=== PATIENT | female | born 1945 | race Caucasian/White ===

== ENCOUNTER → 2020-11-06 12:46 | Outpatient (CLI) | payer MEDICARE, SELFPAY ==
[2020-11-06] MEDS: COVID-19 VACC, Ad26(JANSSEN)/PF 0.5 ML IM (13:10)
== END ==
PROVIDERS: Visit Provider Internal Medicine
DX: Z23 Encounter for immunization (principal)
CPT/HCPCS: 0031A; 91303

== ENCOUNTER → 2021-04-14 17:20 | Outpatient (CLI) | payer OTHER, SELFPAY ==
[2021-04-14 18:10] LABS: Add Manual Diff / Slide Review NO; Basophils Absolute Auto 100 /uL (0-100); Basophils Percent Auto 1.9 % (0-2); Eosinophils Absolute Auto 0 /uL (0-450); Lymphocytes Absolute Auto 400 /uL (1100-4500); Lymphocytes Percent Auto 8.2 % (25-40); Mean Corpuscular HGB Conc 26.7 % (30-36); Mean Corpuscular Hemoglobin 14.7 PG (26-34); Mean Corpuscular Volume 54.9 fL (80-100); Monocytes Absolute Auto 400 /uL (0-900); Monocytes Percent Auto 9.3 % (3-14); Neutrophils Absolute Auto 3500 /uL (1500-7000); Neutrophils Percent Auto 79.6 % (50-75); Platelet Count 365 X10^3/uL (150-400); Red Cell Distribution Width 22.5 % (11.6-14.8); White Blood Cell Count 4.4 X10^3/uL (4.5-11.0)
[2021-04-14 18:17] LABS: Alanine Aminotransferase 11 IU/L (<35); Albumin Globulin Ratio 1.2 (1.0-2.8); Alkaline Phosphatase 113 U/L (38-126); Aspartate Aminotransferase 20 IU/L (14-36); BUN Creatinine Ratio 21.6 (6-22); Bilirubin Total 0.9 mg/dL (0.2-1.3); Blood Urea Nitrogen 16 mg/dL (7-17); Calcium 10.3 mg/dL (8.4-10.2); Carbon Dioxide 22 mmol/L (22-32); Chloride 104 mmol/L (98-107); Cholesterol 170 mg/dL (140-199); Estimated Glomerular Filt Rate > 60.0 mL/min (>60); Globulin 3.3 g/dL (1.7-4.1); Glucose 109 mg/dL (80-110); HDL Cholesterol 54 mg/dL (40-60); HEMOLYSIS < 15 (0-50); LDL Cholesterol Calculated 93 mg/dL (<100); Potassium 3.6 mmol/L (3.4-5.1); Sodium 134 mmol/L (137-145); Total Protein 7.3 g/dL (6.3-8.2); Triglycerides 115 mg/dL (35-150)
[2021-04-14 18:47] LABS: Thyroid Stimulating Hormone 2.37 uIU/mL (0.47-4.68)
[2021-04-14 18:54] LABS: Hematocrit 19.2 % (36-46); Hemoglobin 5.1 g/dL (12.0-16.0)
[2021-04-14 21:09] LABS: Anisocytosis 1+; Microcytosis 3+; Target Cells 1+
== END ==
PROVIDERS: PCP Student in an Organized Health Care Education/Training Program; Referring Provider Student in an Organized Health Care Education/Training Program; Visit Provider Student in an Organized Health Care Education/Training Program
DX: I10 Essential (primary) hypertension (principal); E78.5 Hyperlipidemia, unspecified; F03.90 Unspecified dementia, unspecified severity, without behavioral disturbance, psychotic disturbance, mood disturbance, and anxiety
CPT/HCPCS: 36415; 80053; 80061; 84443; 85025

== ENCOUNTER 2021-04-15 11:09 | Observation (INO) | payer OTHER, SELFPAY ==
[2021-04-15] VITALS (11 sets, daily range): BP systolic 152–193; BP diastolic 72–87; PULSE 72–89; RESP 16–30; TEMP 36.4–37.1; O2SAT 96–100; BMI 28.3
[2021-04-15 11:43] LABS: Add Manual Diff / Slide Review NO; Basophils Absolute Auto 100 /uL (0-100); Basophils Percent Auto 1.8 % (0-2); Eosinophils Absolute Auto 0 /uL (0-450); Eosinophils Percent Auto 0.8 % (2-4); Lymphocytes Absolute Auto 400 /uL (1100-4500); Lymphocytes Percent Auto 12.2 % (25-40); Mean Corpuscular HGB Conc 27.2 % (30-36); Mean Corpuscular Hemoglobin 14.8 PG (26-34); Mean Corpuscular Volume 54.5 fL (80-100); Monocytes Absolute Auto 500 /uL (0-900); Monocytes Percent Auto 13.1 % (3-14); Neutrophils Absolute Auto 2600 /uL (1500-7000); Neutrophils Percent Auto 72.1 % (50-75); Platelet Count 294 X10^3/uL (150-400); Red Blood Cell Count 2.95 X10^6/uL (4.0-5.2); Red Cell Distribution Width 22.4 % (11.6-14.8); White Blood Cell Count 3.5 X10^3/uL (4.5-11.0)
[2021-04-15 11:45] LABS: Hemoglobin 4.4 g/dL (12.0-16.0)
[2021-04-15 11:46] LABS: Hematocrit 16.1 % (36-46)
[2021-04-15 11:52] LABS: Blood Urea Nitrogen 19 mg/dL (7-17); Calcium 10.2 mg/dL (8.4-10.2); Carbon Dioxide 20 mmol/L (22-32); Chloride 104 mmol/L (98-107); Estimated Glomerular Filt Rate > 60.0 mL/min (>60); Glucose 119 mg/dL (80-110); HEMOLYSIS < 15 (0-50); Potassium 3.5 mmol/L (3.4-5.1); Sodium 133 mmol/L (137-145)
--- NOTE | 2021-04-15 12:09 | ED_ITS ---
HPI - Recheck/Abnormal Lab/Rx General Chief Complaint: Recheck/Abnormal Lab/Rx Stated Complaint: Sent by MD for Blood Transfusion Time Seen by Provider: 04/15/21 11:11 History of Present Illness HPI narrative: Patient is a 75-year-old female. Saw a primary doctor yesterday for the 1st time after many months/years of not being seen. She does not take any medications. She had blood drawn yesterday. She received a call today from the doctor's office telling her that she needed to come to the emergency department for blood transfusion. Patient states she has relatively no symptoms however her states that over the past month she has had what appears to be shortness of breath particularly with exertion. The patient denies shortness of breath. Denies chest pain. Denies abdominal pain. Denies blood in her stool. Denies blood in her urine. No change of bowel habits. Does not bruise easily. No headaches. Patient denies use of alcohol. Denies use of nonsteroidal anti-inflammatories. No fevers. Review of Systems Constitutional Constitutional: Reports system reviewed and no additional complaints, except as documented Eyes Eyes: Reports system reviewed and no additional complaints, except as documented ENT Ears, Nose, Mouth, and Throat: Reports system reviewed and no additional complaints, except as documented Cardiovascular Cardiovascular: Reports system reviewed and no additional complaints, except as documented Respiratory Respiratory: Reports system reviewed and no additional complaints, except as documented Gastrointestinal Gastrointestinal: Reports system reviewed and no additional complaints, except as documented Genitourinary Genitourinary: Reports system reviewed and no additional complaints, except as documented Musculoskeletal Musculoskeletal: Reports system reviewed and no additional complaints, except as documented Integumentary/Breasts Skin/Breast: Reports system reviewed and no additional complaints, except as documented Neurologic Neurologic: Reports system reviewed and no additional complaints, except as documented Endocrine Endocrine: Reports system reviewed and no additional complaints, except as documented Hematologic/Lymphatic On Anticoagulants: No Allergic/Immunologic Allergic/Immunologic: Reports system reviewed and no additional complaints, except as documented Patient History Medical History Patient denies medical problems Social History marital status: lives independently: Yes Exam Initial Vital Signs Initial Vital Signs: Vital Signs Temperature 98.4 F 04/15/21 11:15 Pulse Rate 74 08/18/21 11:15 Respiratory Rate 30 H 04/15/21 11:15 Blood Pressure 154/72 H 04/15/21 11:15 Pulse Oximetry 99 04/15/21 11:15 Const General: cooperative and comfortable HENMT Head: normal to inspection and normocephalic Eyes Other: Conjunctival pallor Chest Chest: normal inspection of the chest Resp Effort & Inspection: normal respiratory effort Auscultation: clear to auscultation bilaterally Cardio Rate: regular rate Rhythm: regular rhythm GI Inspection: normal to inspection Palpation: soft and No tender Skin Other: Pale skin, no rashes Neuro General: patient alert, patient awake, patient oriented x3 and moves all extremities Speech: speech normal Extrem General: normal to inspection Psych Appearance: grossly normal and well kempt Scores GCS [place] coma scale eye opening: Spontaneous [place] coma scale verbal response: Orientated [place] coma scale motor response: Obey commands [place] coma scale total score: 15 Course Orders Ordered: ED Orders 04/15/21 11:32 Basic Metabolic Panel Stat Complete Blood Count AUTO DIFF Stat Packed Cells Stat Type and Screen Stat 04/15/21 11:49 COVID19 - ADMIT (ANIMAL CHIROPRACTOR swab/PCR) Stat Vital Signs Vital signs: Vital Signs - 8 hr 04/15/21 11:15 04/15/21 12:57 Temperature 98.4 F 98.1 F Pulse Rate 74 84 Respiratory Rate 30 H 16 Blood Pressure 154/72 H 158/72 H Pulse Oximetry 99 MDM - Recheck/Abnormal Lab/Rx Medical Records Attestation: I reviewed the patient's medical records. Lab Data Attestation: I reviewed the patient's lab results. Result diagrams: 04/15/21 11:32 04/15/21 11:32 Labs: Lab Results 04/15/21 04/15/21 04/15/21 Range/Units 11:32 11:32 11:32 WBC 3.5 L (4.5-11.0) X10^3/uL RBC 2.95 L (4.0-5.2) X10^6/uL Hgb 4.4 L* (12.0-16.0) g/dL Hct 16.1 L* (36-46) % MCV 54.5 L (80-100) fL MCH 14.8 L (26-34) PG MCHC 27.2 L (30-36) % RDW 22.4 H (11.6-14.8) % Plt Count 294 (150-400) X10^3/uL Neut % (Auto) 72.1 (50-75) % Lymph % (Auto) 12.2 L (25-40) % [place] % (Auto) 13.1 (3-14) % Eos % (Auto) 0.8 L (2-4) % Baso % (Auto) 1.8 (0-2) % Neut # (Auto) 2600 (8011-8201) /uL Lymph # (Auto) 400 L (2723-1015) /uL [place] # (Auto) 500 (0-900) /uL Eos # (Auto) 0 (0-450) /uL Baso # (Auto) 100 (0-100) /uL RBC Morphology Not Reportable Hypochromasia 2+ H Microcytosis 3+ H Sodium 133 L (137-145) mmol/L Potassium 3.5 (3.4-5.1) mmol/L Chloride 104 (98-107) mmol/L Carbon Dioxide 20 L (22-32) mmol/L BUN 19 H (7-17) mg/dL Creatinine 0.73 (0.52-1.04) mg/dL Estimated GFR > 60.0 (>60) mL/min BUN/Creatinine Ratio 26.0 H (6-22) Glucose 119 H (80-110) mg/dL Calcium 10.2 (8.4-10.2) mg/dL Blood Type O Positive Antibody Screen Negative Crossmatch See Detail MDM Narrative Medical decision making narrative: Patient is not hypotensive. Not tachycardic. Is pale. Is anemic on her labs today. Discussed the risks and benefits of a blood transfusion in after patient expressed understanding we will proceed with transfusing 2 units of packed red blood cells. Uncertain of the exact etiology of her anemia. She does not have any abdominal pain. No blood in her stool. (Hemoccult testing is still pending) she denies any blood in her urine. I did discuss the case with Dr. Cruz who was the patient's primary doctor who will admit for further evaluation and treatment. I did discuss the need for admission with the patient. She expressed understanding and agreement. Critical Care Time Critical Care Time Critical Care Time: Yes Total Critical Care Time: 35 Attestation: The high probability of a clinically significant, sudden or life threatening deterioration of the hematology/cardiovascular system(s) required my full and direct attention, intervention and personal management. The aggregate critical care time was35 minutes. This time is in addition to time spent performing reported procedures but includes the following: [x] Data Review and interpretation [x] Patient assessment and monitoring of vital signs [x] Documentation [x] Medication orders and management Discharge Plan Departure Patient Disposition: Admitted as Observation Clinical Impression: Anemia
[2021-04-15 12:10] LABS: Hypochromasia 2+; Microcytosis 3+
[2021-04-15 14:20] LABS: COVID19 - ADMIT (NP swab/PCR) Negative (Negative)
--- NOTE | 2021-04-15 15:24 | PC.NURSE ---
Rec'd pt to rm 218 from ED via yen[facility] with blood transfusing. Supportive at bedside. Admission assessment completed. states pt is confused and covers well. Oriented pt and to room, routine, use of call light. Instructed pt to wait for assistance before getting OOB. She is agreeable and verbalizes understanding. Bed alarm on. Call light in easy reach.
--- NOTE | 2021-04-15 18:03 | PM.HP.1 ---
History of Present Illness History of Present Illness Date Patient Seen: 04/15/21 Time Patient Seen: 18:04 Chief complaint: Sent by MD for Blood Transfusion Narrative: 75 year old female presented to the clinic yesterday to reestablish care after 5 years. She had no complaints at that visit. UMS dementia screen, 06/27. Vital signs significant for hypotension at 102/60 and tachycardia at 110. Routine labs revealed a hemoglobin/hematocrit of 5.1/19.2 and she was sent to the ED for blood transfusion. H/H in the ED today was 4.4/16.1. Vital signs included a temperature of 98.4?, pulse 74, respirations 30, blood pressure 154/72, O2 saturation 99% on room air. WBC slightly low at 3.5, sodium also low at 133. BUN slightly elevated at 19. Peripheral smear revealed hypochromasia 2+ and a microcytosis at 3+. Fecal occult blood pending. She was transfused 2 units of PRBCs prior to being transferred to the floor. Patient reports that she feels slightly better after the blood but didn't feel poorly prior to that. I have no pain. Patient reports that she has been healthy all of her life and takes no medications. She takes no supplements. She is not on any NSAIDs. No alcohol use. Has a cup of tea approximately 1 per day, not every day. Appetite is poor. Diet consists of carbohydrates, fruits, vegetables and scant protein. is diabetic, so follows a diabetic diet. She has been a little bit fatigued and reports that she gets tired when walking short distances in the house but patient denies that this is true. No melena or hematochezia. No hematuria. Patient reports one lifetime colonoscopy, cannot remember the result. Past Medical History: Hyperlipidemia Osteoarthritis Dementia Obesity with x 3 Past Surgical History: Tonsillectomy, age 1 Dental surgery Family History: Father: Parkinson's Mother: Lung cancer, smoker Sister: healthy Children: healthy Social History: Grew up in family, lived all over. Out of touch with her family as they are drinkers. First at age 42, 2 daughters, 1 son. Second is Chase, over 15 years. 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 No alcohol, tobacco, or drugs. Patient History Medical History Patient denies medical problems Family & Social History Social History: household members spouse lives independently Yes Safety & Behavioral: Feels Safe in Current Yes Environment Been Physically Hurt or No Threatened By a Person Suicidal Ideation Description None Tobacco & Substance use: Smoking Status Never smoker alcohol intake never Substance Use Type does not use Meds Home Medications and Allergies Home Medications Medication Instructions Recorded Confirmed Type No Known Home Medications 04/15/21 04/15/21 History Allergies Allergy/AdvReac Type Severity Reaction Status Date / Time No Known Drug Allergies Allergy Verified 04/15/21 14:55 Review of Systems Review of Systems Narrative: See HPI. Exam Vital Signs (past 8 hours): - 04/15/21 11:15 04/15/21 12:57 04/15/21 13:14 Temperature 98.4 F 98.1 F 97.7 F Pulse Rate 74 84 83 Respiratory Rate 30 H 16 28 H Blood Pressure 154/72 H 158/72 H 173/74 H Pulse Oximetry 99 04/15/21 13:15 04/15/21 14:07 04/15/21 14:37 Temperature 97.7 F 98.7 F 98.8 F Pulse Rate 82 84 82 Respiratory Rate 25 H 16 16 Blood Pressure 173/79 H 153/75 H 158/75 H Pulse Oximetry 99 96 04/15/21 15:10 04/15/21 16:07 04/15/21 16:29 Temperature 97.5 F L 97.5 F L 97.6 F Pulse Rate 80 80 89 Respiratory Rate 18 18 18 Blood Pressure 193/87 H 193/87 H 153/76 H Pulse Oximetry 100 Oxygen Delivery Method Room Air Oxygen Flow Rate 0 Narrative Exam Narrative: GENERAL: Alert and oriented, appearing stated age and in no acute distress. HEENT: Head normocephalic/atraumatic. LUNGS: Clear to ausculation bilaterally, no wheezes, rhonchi or rales. CV: Normal S1 and S2 with regular rate and rhythm, no audible murmurs, rubs or gallops. ABDOMEN: Soft, non-tender, non-distended, no organomegaly. Positive bowel sounds. EXTREMITIES: No clubbing, cyanosis, or edema. NEURO: Cranial nerves II through XII grossly intact, no focal deficits. PSYCH: Alert and oriented x 3. SKIN: Pale, no concerning lesions. Objective Labs Result Diagrams: 04/15/21 11:32 04/15/21 11:32 Labs: Laboratory Results - last 24 hr 04/15/21 04/15/21 04/15/21 11:32 11:32 11:32 WBC 3.5 L RBC 2.95 L Hgb 4.4 L* Hct 16.1 L* MCV 54.5 L MCH 14.8 L MCHC 27.2 L RDW 22.4 H Plt Count 294 Neut % (Auto) 72.1 Lymph % (Auto) 12.2 L [place] % (Auto) 13.1 Eos % (Auto) 0.8 L Baso % (Auto) 1.8 Neut # (Auto) 2600 Lymph # (Auto) 400 L [place] # (Auto) 500 Eos # (Auto) 0 Baso # (Auto) 100 RBC Morphology Not Reportable Hypochromasia 2+ H Microcytosis 3+ H Sodium 133 L Potassium 3.5 Chloride 104 Carbon Dioxide 20 L BUN 19 H Creatinine 0.73 Estimated GFR > 60.0 BUN/Creatinine Ratio 26.0 H Glucose 119 H Calcium 10.2 SARS-CoV-2 (PCR) Blood Type O Positive Antibody Screen Negative Crossmatch See Detail 04/15/21 12:26 WBC RBC Hgb Hct MCV MCH MCHC RDW Plt Count Neut % (Auto) Lymph % (Auto) [place] % (Auto) Eos % (Auto) Baso % (Auto) Neut # (Auto) Lymph # (Auto) [place] # (Auto) Eos # (Auto) Baso # (Auto) RBC Morphology Hypochromasia Microcytosis Sodium Potassium Chloride Carbon Dioxide BUN Creatinine Estimated GFR BUN/Creatinine Ratio Glucose Calcium SARS-CoV-2 (PCR) Negative Blood Type Antibody Screen Crossmatch Assessment & Plan Assessment & Plan narrative: 1. Anemia, normocytic /normochromic, likely iron deficiency, present upon admission Plan: Awaiting post transfusion CBC, anticipate need for additional units. In the meantime, running labs for anemia workup. Patient seems to be tolerating this level of anemia remarkably well, likely chronic and related to iron deficiency. FOB pending. Anticipate starting IV iron in the morning. Outpatient EGD/colonoscopy. 2. Hyperlipidemia, chronic Plan: Will update FLP in the morning. 3. Dementia, chronic Plan: Supportive care. 4. Obesity Plan: Patient does not appear to be malnourished, but may need nutrition consult prior to discharge depending on outcome of iron studies. DVT Prophylaxis: SCDs Code: Full COVID: negative FEN: regular diet, PRBCs as needed Disposition: Anticipate 2 midnights.
[2021-04-15 18:52] LABS: Appearance Urine UA CLOUDY; Bilirubin Urine UA NEGATIVE (NEGATIVE); Color Urine UA YELLOW; Glucose Urine UA NEGATIVE (Negative); Ketones Urine UA NEGATIVE (NEGATIVE); Leukocyte Esterase Urine UA 2+ (NEGATIVE); Nitrite Urine UA NEGATIVE (Negative); Occult Blood Urine UA 1+ (Negative); Protein Urine UA 2+ (Negative); Urobilinogen Urine UA 0.2 E.U./dL (0.2)
[2021-04-15 18:55] LABS: pH Urine UA 5.5 (4.5-8.0)
[2021-04-15 18:58] LABS: RBC Urine 1-5/HPF (0-5/HPF)
[2021-04-15 18:59] LABS: Amorphous Sediment Urine 1+; Bacteria Urine Many (>30); Culture Indicated Urine Specimen Cultured; Mucus Urine 1+ (Negative); Squamous Epithelial Cell Urine 5-10 /HPF (0-5/HPF); WBC Urine 30-100/HPF (0-5/HPF)
[2021-04-15 19:54] LABS: Add Manual Diff / Slide Review NO; Basophils Absolute Auto 100 /uL (0-100); Basophils Percent Auto 1.3 % (0-2); Eosinophils Absolute Auto 100 /uL (0-450); Eosinophils Percent Auto 1.2 % (2-4); Hematocrit 24.2 % (36-46); Hemoglobin 7.4 g/dL (12.0-16.0); Lymphocytes Absolute Auto 700 /uL (1100-4500); Lymphocytes Percent Auto 12.2 % (25-40); Mean Corpuscular Hemoglobin 19.6 PG (26-34); Mean Corpuscular Volume 64.3 fL (80-100); Monocytes Absolute Auto 700 /uL (0-900); Neutrophils Absolute Auto 4100 /uL (1500-7000); Neutrophils Percent Auto 72.3 % (50-75); Platelet Count 220 X10^3/uL (150-400); Red Blood Cell Count 3.77 X10^6/uL (4.0-5.2); Red Cell Distribution Width 32.9 % (11.6-14.8); White Blood Cell Count 5.7 X10^3/uL (4.5-11.0)
[2021-04-15 20:06] LABS: Reticulocyte Count, Percent 1.8 % (1.06-2.63)
[2021-04-15 20:11] LABS: Iron 59 ug/dL (37-170)
[2021-04-15 20:20] LABS: Percent Iron Saturation 14 % (15-50); Total Iron Binding Capacity 429 ug/dL (265-497); Transferrin 338 mg/dL (206-381)
[2021-04-15 20:23] LABS: Mean Corpuscular HGB Conc 30.4 % (30-36)
[2021-04-15 20:24] LABS: Anisocytosis 3+; Dimorphic RBC PRESENT; Microcytosis 2+
[2021-04-15 20:30] LABS: Ferritin 7 ng/mL (11-264)
[2021-04-15 21:01] LABS: Folate 3.1 ng/mL (2.76-20.0); Vitamin B12 545 pg/mL (239-931)
[2021-04-15 23:04] LABS: Appearance Urine UA CLOUDY; Bilirubin Urine UA NEGATIVE (NEGATIVE); Color Urine UA YELLOW; Glucose Urine UA NEGATIVE (Negative); Ketones Urine UA TRACE (NEGATIVE); Leukocyte Esterase Urine UA 3+ (NEGATIVE); Nitrite Urine UA NEGATIVE (Negative); Occult Blood Urine UA 2+ (Negative); Protein Urine UA 2+ (Negative); Urobilinogen Urine UA 0.2 E.U./dL (0.2)
[2021-04-15 23:08] LABS: pH Urine UA 5.5 (4.5-8.0)
[2021-04-15 23:18] LABS: Bacteria Urine Many (>30); RBC Urine 1-5/HPF (0-5/HPF); Squamous Epithelial Cell Urine 1-5 /HPF (0-5/HPF); WBC Urine 30-100/HPF (0-5/HPF)
[2021-04-16] MEDS: NITROFURANTOIN ER 100 MG CAPSULE PO ×2 (00:47→09:04)
[2021-04-16] MEDS: FUROSEMIDE 20 MG/2 ML VIAL IV (00:47)
[2021-04-16 01:44] VITALS: BP 156/83; PULSE 86; RESP 16; TEMP 36.8; O2SAT 100
[2021-04-16 04:25] VITALS: BP 146/76; PULSE 93; RESP 17; TEMP 36.8; O2SAT 99
[2021-04-16] MEDS: ACETAMINOPHEN 325 MG TABLET 650 MG PO (04:36)
[2021-04-16 05:37] LABS: Basophils Absolute Auto 100 /uL (0-100); Basophils Percent Auto 1.9 % (0-2); Eosinophils Absolute Auto 100 /uL (0-450); Eosinophils Percent Auto 2.2 % (2-4); Hematocrit 24.2 % (36-46); Hemoglobin 7.3 g/dL (12.0-16.0); Lymphocytes Absolute Auto 400 /uL (1100-4500); Lymphocytes Percent Auto 10.2 % (25-40); Mean Corpuscular Hemoglobin 19.3 PG (26-34); Mean Corpuscular Volume 64.3 fL (80-100); Monocytes Absolute Auto 600 /uL (0-900); Monocytes Percent Auto 13.5 % (3-14); Neutrophils Absolute Auto 3200 /uL (1500-7000); Neutrophils Percent Auto 72.2 % (50-75); Platelet Count 234 X10^3/uL (150-400); Red Blood Cell Count 3.76 X10^6/uL (4.0-5.2); White Blood Cell Count 4.4 X10^3/uL (4.5-11.0)
[2021-04-16 05:38] LABS: Add Manual Diff / Slide Review SLIDE REVIEW
[2021-04-16 05:48] LABS: Alanine Aminotransferase 12 IU/L (<35); Albumin 3.5 g/dL (3.5-5.0); Albumin Globulin Ratio 1.2 (1.0-2.8); Alkaline Phosphatase 88 U/L (38-126); Aspartate Aminotransferase 21 IU/L (14-36); BUN Creatinine Ratio 22.5 (6-22); Bilirubin Total 1.1 mg/dL (0.2-1.3); Blood Urea Nitrogen 16 mg/dL (7-17); Calcium 9.7 mg/dL (8.4-10.2); Carbon Dioxide 23 mmol/L (22-32); Chloride 104 mmol/L (98-107); Estimated Glomerular Filt Rate > 60.0 mL/min (>60); Glucose 126 mg/dL (80-110); HEMOLYSIS < 15 (0-50); Potassium 3.2 mmol/L (3.4-5.1); Sodium 135 mmol/L (137-145); Total Protein 6.5 g/dL (6.3-8.2)
--- NOTE | 2021-04-16 07:10 | PM.DS.1 ---
History of Present Illness History of Present Illness Date Patient Seen: 04/16/21 Time Patient Seen: 07:10 Chief complaint: Sent by MD for Blood Transfusion Narrative: 75 year old female presented to the clinic yesterday to reestablish care after 5 years. She had no complaints at that visit. UMS dementia screen, 06/27. Vital signs significant for hypotension at 102/60 and tachycardia at 110. Routine labs revealed a hemoglobin/hematocrit of 5.1/19.2 and she was sent to the ED for blood transfusion. H/H in the ED today was 4.4/16.1. Vital signs included a temperature of 98.4?, pulse 74, respirations 30, blood pressure 154/72, O2 saturation 99% on room air. WBC slightly low at 3.5, sodium also low at 133. BUN slightly elevated at 19. Peripheral smear revealed hypochromasia 2+ and a microcytosis at 3+. Fecal occult blood pending. She was transfused 2 units of PRBCs prior to being transferred to the floor. Patient reports that she feels slightly better after the blood but didn't feel poorly prior to that. I have no pain. Patient reports that she has been healthy all of her life and takes no medications. She takes no supplements. She is not on any NSAIDs. No alcohol use. Has a cup of tea approximately 1 per day, not every day. Appetite is poor. Diet consists of carbohydrates, fruits, vegetables and scant protein. is diabetic, so follows a diabetic diet. She has been a little bit fatigued and reports that she gets tired when walking short distances in the house but patient denies that this is true. No melena or hematochezia. No hematuria. Patient reports one lifetime colonoscopy, cannot remember the result. Past Medical History: Hyperlipidemia Osteoarthritis Dementia Obesity with x 3 Past Surgical History: Tonsillectomy, age 1 Dental surgery Family History: Father: Parkinson's Mother: Lung cancer, smoker Sister: healthy Children: healthy Social History: Grew up in family, lived all over. Out of touch with her juanita family as they are drinkers. First at age 42, 2 daughters, 1 son. Second is Chase, over 15 years. Chase is a polymer chemist. 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 No alcohol, tobacco, or drugs. Discharge Providers Provider Date of admission: 04/15/21 13:59 Discharge Date: 04/16/21 Primary care physician: Estela Cruz MD Consults: 04/15/21 14:55 Consult to Dietitian, Adult Routine Comment: Reason For Exam: at risk for malnutrition 04/15/21 18:32 Consult to Discharge Planning Routine Comment: Consult to Physical Therapy Evaluate & Treat Comment: Physician Instructions: Evaluate and Treat Discharge provider: Estela Cruz MD Summary Hospital Course Discharge Diagnosis: 1. Anemia, normocytic /normochromic, iron deficiency, new 2. Hypertension, chronic 3. UTI, acute, present on admission 4. Hypkalemia, new 5. Dementia, chronic 6. Hyperlipdemia, chronic 7. Obesity,chronic Hospital Course: Uneventful course. Patient received 2 units of packed red blood cells in the ED and hemoglobin/ hematocrit on day of discharge was 7.3/24.2. She will receive 200 mg of venofer prior to discharge and continue with outpatient IV iron infusions. She has been hypertensive throughout her stay and that appears to be a chronic issue that is untreated. She will be discharged on lisinopril 10 mg p.o. q.day with a blood pressure check in 1 week. She also had an UTI diagnosed at time of admission and has been treated with Macrobid 100 mg p.o. x1, she will continue on a 10 day b.i.d. course upon discharge. Finally, her potassium is slightly low this morning and that has been repleted with 20 mEq of oral potassium. Otherwise, she is clinically stable, afebrile with stable vital signs throughout. Planned follow-up in 1 week, goals of care will be to recheck CBC , CMP, and ensure that she is receiving IV iron transfusions: 200 mg x5 over 14 days. Exam Vital Signs (past 8 hours): - 04/16/21 01:44 04/16/21 04:25 Temperature 98.2 F 98.2 F Pulse Rate 86 93 H Respiratory Rate 16 17 Blood Pressure 156/83 H 146/76 H Pulse Oximetry 100 99 Oxygen Delivery Method Room Air Oxygen Flow Rate 0 Narrative Exam Narrative: GENERAL: Alert and oriented, appearing stated age and in no acute distress. HEENT: Head normocephalic/atraumatic. LUNGS: Clear to ausculation bilaterally, no wheezes, rhonchi or rales. CV: Normal S1 and S2 with regular rate and rhythm, no audible murmurs, rubs or gallops. ABDOMEN: Soft, non-tender, non-distended, no organomegaly. Positive bowel sounds. EXTREMITIES: No clubbing, cyanosis, or edema. NEURO: Cranial nerves II through XII grossly intact, no focal deficits. PSYCH: Alert and oriented x 3. SKIN: No concerning lesions. Objective Labs Result Diagrams: 04/16/21 05:20 04/16/21 05:20 Labs: Laboratory Results - last 24 hr 04/15/21 04/15/21 04/15/21 11:32 11:32 11:32 WBC 3.5 L RBC 2.95 L Hgb 4.4 L* Hct 16.1 L* MCV 54.5 L MCH 14.8 L MCHC 27.2 L RDW 22.4 H Plt Count 294 Neut % (Auto) 72.1 Lymph % (Auto) 12.[address] [place] % (Auto) 13.1 Eos % (Auto) 0.8 L Baso % (Auto) 1.8 Neut # (Auto) 2600 Lymph # (Auto) [address] [place] # (Auto) 500 Eos # (Auto) 0 Baso # (Auto) 100 RBC Morphology Not Reportable Dimorphic RBCs Hypochromasia 2+ H Anisocytosis Microcytosis 3+ H Percent Retic Sodium 133 L Potassium 3.5 Chloride 104 Carbon Dioxide 20 L BUN 19 H Creatinine 0.73 Estimated GFR > 60.0 BUN/Creatinine Ratio 26.0 H Glucose 119 H Calcium 10.2 Iron TIBC % Saturation Transferrin Ferritin Total Bilirubin AST ALT Alkaline Phosphatase Total Protein Albumin Globulin Albumin/Globulin Ratio Vitamin B12 Folate Urine Color Urine Appearance Urine pH Ur Specific [place] Urine Protein Urine Glucose (UA) Urine Ketones Urine Occult Blood Urine Nitrate Urine Bilirubin Urine Urobilinogen Ur Leukocyte Esterase Urine RBC Urine WBC Ur Squamous Epith Cells Amorphous Sediment Urine Bacteria Urine Mucus Ur Culture Indicated? Micro UA Comment SARS-CoV-2 (PCR) Blood Type O Positive Antibody Screen Negative Crossmatch See Detail 04/15/21 04/15/21 04/15/21 12:26 18:25 19:32 WBC 5.7 D RBC 3.77 L Hgb 7.4 L Hct 24.2 L MCV 64.3 L D MCH 19.6 L MCHC 30.4 D RDW 32.9 H Plt Count 220 Neut % (Auto) 72.3 Lymph % (Auto) 12.[address] [place] % (Auto) 13.0 Eos % (Auto) 1.2 L Baso % (Auto) 1.3 Neut # (Auto) 4100 Lymph # (Auto) [address] [place] # (Auto) 700 Eos # (Auto) 100 Baso # (Auto) 100 RBC Morphology See below Dimorphic RBCs Present Hypochromasia Anisocytosis 3+ H D Microcytosis 2+ H Percent Retic Sodium Potassium Chloride Carbon Dioxide BUN Creatinine Estimated GFR BUN/Creatinine Ratio Glucose Calcium Iron TIBC % Saturation Transferrin Ferritin Total Bilirubin AST ALT Alkaline Phosphatase Total Protein Albumin Globulin Albumin/Globulin Ratio Vitamin B12 Folate Urine Color Yellow Urine Appearance Cloudy Urine pH 5.5 Ur Specific [place] 1.020 Urine Protein 2+ H Urine Glucose (UA) Negative Urine Ketones Negative Urine Occult Blood 1+ H Urine Nitrate Negative Urine Bilirubin Negative Urine Urobilinogen 0.2 Ur Leukocyte Esterase 2+ H Urine RBC 1-5/hpf Urine WBC 30-100/hpf H Ur Squamous Epith Cells 5-10 /hpf H Amorphous Sediment 1+ Urine Bacteria Many (>30) H Urine Mucus 1+ H Ur Culture Indicated? Specimen cultured Micro UA Comment SARS-CoV-2 (PCR) Negative Blood Type Antibody Screen Crossmatch 04/15/21 04/15/21 04/15/21 19:32 19:32 19:32 WBC RBC Hgb Hct MCV MCH MCHC RDW Plt Count Neut % (Auto) Lymph % (Auto) [place] % (Auto) Eos % (Auto) Baso % (Auto) Neut # (Auto) Lymph # (Auto) [place] # (Auto) Eos # (Auto) Baso # (Auto) RBC Morphology Dimorphic RBCs Hypochromasia Anisocytosis Microcytosis Percent Retic 1.8 Sodium Potassium Chloride Carbon Dioxide BUN Creatinine Estimated GFR BUN/Creatinine Ratio Glucose Calcium Iron 59 TIBC 429 % Saturation 14 L Transferrin 338 Ferritin 7 L Total Bilirubin AST ALT Alkaline Phosphatase Total Protein Albumin Globulin Albumin/Globulin Ratio Vitamin B12 545 Folate 3.1 Urine Color Urine Appearance Urine pH Ur Specific [place] Urine Protein Urine Glucose (UA) Urine Ketones Urine Occult Blood Urine Nitrate Urine Bilirubin Urine Urobilinogen Ur Leukocyte Esterase Urine RBC Urine WBC Ur Squamous Epith Cells Amorphous Sediment Urine Bacteria Urine Mucus Ur Culture Indicated? Micro UA Comment SARS-CoV-2 (PCR) Blood Type Antibody Screen Crossmatch 08/04/16/21 04/16/21 22:50 05:20 05:20 WBC 4.4 L RBC 3.76 L Hgb 7.3 L Hct 24.2 L MCV 64.3 L MCH 19.3 L MCHC 30.0 RDW 33.0 H Plt Count 234 Neut % (Auto) 72.2 Lymph % (Auto) 10.[address] [place] % (Auto) 13.5 Eos % (Auto) 2.2 Baso % (Auto) 1.9 Neut # (Auto) 3200 Lymph # (Auto) [address] [place] # (Auto) 600 Eos # (Auto) 100 Baso # (Auto) 100 RBC Morphology See below Dimorphic RBCs * Hypochromasia Anisocytosis Microcytosis Percent Retic Sodium 135 L Potassium 3.2 L Chloride 104 Carbon Dioxide 23 BUN 16 Creatinine 0.71 Estimated GFR > 60.0 BUN/Creatinine Ratio 22.5 H Glucose 126 H Calcium 9.7 Iron TIBC % Saturation Transferrin Ferritin Total Bilirubin 1.1 AST 21 ALT 12 Alkaline Phosphatase 88 Total Protein 6.5 Albumin 3.5 Globulin 3.0 Albumin/Globulin Ratio 1.2 Vitamin B12 Folate Urine Color Yellow Urine Appearance Cloudy Urine pH 5.5 Ur Specific [place] 1.020 Urine Protein 2+ H Urine Glucose (UA) Negative Urine Ketones Trace H Urine Occult Blood 2+ H Urine Nitrate Negative Urine Bilirubin Negative Urine Urobilinogen 0.2 Ur Leukocyte Esterase 3+ H Urine RBC 1-5/hpf Urine WBC 30-100/hpf H Ur Squamous Epith Cells 1-5 /hpf Amorphous Sediment Urine Bacteria Many (>30) H Urine Mucus Ur Culture Indicated? Micro UA Comment * SARS-CoV-2 (PCR) Blood Type Antibody Screen Crossmatch [facility] Medical History Patient denies medical problems Social History marital status: household members: spouse lives independently: Yes Smoking Status: Never smoker alcohol intake: never Discharge Plan Discharge Plan Patient Disposition: Home Provider Discharge Comment: Continue outpatient IV iron transfusions, you will be getting a call to arrange your infusions in the next few days. Discharge orders & Medications Prescriptions: New lisinopril 10 mg tablet 10 mg PO DAILY Qty: 30 RF: 3 nitrofurantoin monohyd/m-cryst [Macrobid] 100 mg Capsule 100 mg PO BID 10 Days Qty: 20 RF: 0 Follow up/Referrals: Estela Cruz MD [Primary Care Provider] - Diet/Activity/Treatments Diet: Diet as Tolerated Activity: As tolerated. Discharge Data Primary Care Provider: Estela Cruz Attending Provider: Estela Cruz
[2021-04-16 08:00] VITALS: BP 151/89; PULSE 75; RESP 16; TEMP 36.5; O2SAT 98
[2021-04-16 09:04] VITALS: BP 151/89; PULSE 75
[2021-04-16] MEDS: lisinopriL 10 MG TABLET PO (09:04)
[2021-04-16] MEDS: SODIUM CHLORIDE 0.9% FLUSH 10 ML IV (09:05)
[2021-04-16] MEDS: POTASSIUM CHLORIDE 20 MEQ TAB PO (09:05)
[2021-04-16] MEDS: IRON SUCROSE 200 MG in SODIUM CHLORIDE 0.9% 100 ML 220 ML IV (09:07)
--- NOTE | 2021-04-16 10:37 | DIET.PN ---
Dietary Progress Note Assessment: 75y F admitted after PCP office visit and lab draw finding critical iron study (hgb 4.4, hct 16.1, % saturation 14, ferritin 7) referred to nutrition for iron deficiency anemia nutrition education. Pt has preferred a vegetarian diet most of her life, does eat some meat but feels bad about it, prefers not. Pt does consume dairy, fish and eggs. Per pts , pt started to decline prior to global pandemic and has slowly but consistently continued to decline. For several months pt has had low appetite, low energy, often sleeping through meals. Pt prefers to snack throughout day. Pt feels embarrassed about current hospitalization, I feel like a dummy, like I did something wrong. Pts does all food shopping and prep, very attentive. Has heat on in home, flannel sheets on bed for easy, comfortable transition for pt. will go shopping at [employer] upon d/c to stock up on high iron foods for pt per our conversation. HT: 157.4cm WT: 70.3kg BMI: 28.3 Labs:hgb 4.4, hct 16.1, % saturation 14, ferritin 7, WBC 4.4 , RBC 3.76 Interventions: 1. Educated pt and spouse on iron repleting diet using handout. Discussed high iron foods of all food families. Discussed heme vs non-heme iron, pairing all iron foods with vitamin C foods. Pt does like seafood rather than meat, so encouraged pt to incorporate clams or oysters as highly bioavailable iron source. Pt willing to eat homemade trail mix of dried apricots, raisins, pumpkin seeds, dark chocolate. Pts will use food list to meal plan. 2. Recc iron supplement per PCP EER: 15mg iron from food daily
--- NOTE | 2021-04-16 11:46 | PT-IP ANOTE ---
checked on pt and pt not in her room at ~1055. Nurse confirmed that pt d/c home already. pt d/c home before PT eval.
--- NOTE | 2021-04-16 12:19 | PC.NURSE ---
Pt A&Ox1, very forgetful, pleasant but easily anxious, redirectable. VSS, afebrile on RA. Pt given a.m. medications with IV dose of iron. Upon evaluation by , pt cleared for discharge home with . Pt assisted to get dressed. Discharge education and instructions provided to as patient with alerted mental status. Pt's verbalizes understanding of medications, education and follow up appointments. Pt is discharged to private vehicle with via w/chair at approximately 1200 p.m with all of her belongings.
--- NOTE | 2021-04-16 16:31 | CM.IDA ---
Initial DCP Assessment Note Pt is a 75 yo female, resident of [facility], presented to Dr Cruz's office yesterday to reestablish care, had no complaints and was found to be severely anemic, patient admitted observation for blood transfusion. PCP: Estela Cruz Payer: Andrei MORA Reviewed chart, pt discussed in multidisciplinary rounds this morning. Patient going home today w/spouse, no needs identified from this BIOTECHNOLOGIST or CM team. Patient had left w/spouse before this BIOTECHNOLOGIST had an opportunity to introduce self, patient forgetful but at cognitive baseline and easily redirectable; no needs according to medical team. JEOVANNY Oliva
== END 2021-04-16 12:00 | disposition home or self-care (01) ==
LOC: ED 12:41 → AC 14:00
PROVIDERS: Admitting Provider Student in an Organized Health Care Education/Training Program; Emergency Provider Emergency Medicine; PCP Student in an Organized Health Care Education/Training Program; Referring Provider Emergency Medicine; Visit Provider Student in an Organized Health Care Education/Training Program
DX: D50.9 Iron deficiency anemia, unspecified (principal); N39.0 Urinary tract infection, site not specified; B96.89 Other specified bacterial agents as the cause of diseases classified elsewhere; E87.6 Hypokalemia; I10 Essential (primary) hypertension; F03.90 Unspecified dementia, unspecified severity, without behavioral disturbance, psychotic disturbance, mood disturbance, and anxiety; E78.5 Hyperlipidemia, unspecified; E66.9 Obesity, unspecified; Z20.822 Contact with and (suspected) exposure to COVID-19; I95.9 Hypotension, unspecified; R00.0 Tachycardia, unspecified
CPT/HCPCS: 36415; 36430; 80048; 80053; 81001; 82607; 82728; 82746; 83540; 83550; 84466; 85025; 85045; 86850; 86900; 86901; 87086; 87635; 96365; 96374; 96375; 99284; 99285; 99291; C9803; G0378; P9016; J1756; J1940

== ENCOUNTER → 2021-04-25 10:53 | Outpatient (CLI) | payer OTHER, SELFPAY ==
[2021-04-15 23:02] VITALS: BMI 28.3
[2021-04-25 11:58] LABS: Add Manual Diff / Slide Review NO; Basophils Absolute Auto 100 /uL (0-100); Basophils Percent Auto 1.9 % (0-2); Eosinophils Absolute Auto 300 /uL (0-450); Hematocrit 28.2 % (36-46); Hemoglobin 8.4 g/dL (12.0-16.0); Lymphocytes Absolute Auto 700 /uL (1100-4500); Lymphocytes Percent Auto 15.9 % (25-40); Mean Corpuscular HGB Conc 29.9 % (30-36); Mean Corpuscular Hemoglobin 22.1 PG (26-34); Mean Corpuscular Volume 73.9 fL (80-100); Monocytes Absolute Auto 400 /uL (0-900); Monocytes Percent Auto 8.5 % (3-14); Neutrophils Absolute Auto 3200 /uL (1500-7000); Neutrophils Percent Auto 67.7 % (50-75); Platelet Count 367 X10^3/uL (150-400); Red Blood Cell Count 3.82 X10^6/uL (4.0-5.2); Red Cell Distribution Width 39.3 % (11.6-14.8); White Blood Cell Count 4.7 X10^3/uL (4.5-11.0)
[2021-04-25 12:34] LABS: Alanine Aminotransferase 21 IU/L (<35); Albumin 3.8 g/dL (3.5-5.0); Albumin Globulin Ratio 1.2 (1.0-2.8); Alkaline Phosphatase 105 U/L (38-126); Aspartate Aminotransferase 31 IU/L (14-36); BUN Creatinine Ratio 38.6 (6-22); Bilirubin Total 0.5 mg/dL (0.2-1.3); Blood Urea Nitrogen 27 mg/dL (7-17); Calcium 10.6 mg/dL (8.4-10.2); Carbon Dioxide 20 mmol/L (22-32); Chloride 109 mmol/L (98-107); Estimated Glomerular Filt Rate > 60.0 mL/min (>60); Globulin 3.2 g/dL (1.7-4.1); Glucose 100 mg/dL (80-110); HEMOLYSIS < 15 (0-50); Sodium 136 mmol/L (137-145)
[2021-04-25 13:22] LABS: Anisocytosis 3+; Hypochromasia 1+; Spherocytes 2+
[2021-04-25 13:23] LABS: Poikilocytosis 1+
== END ==
PROVIDERS: PCP Student in an Organized Health Care Education/Training Program; Referring Provider Student in an Organized Health Care Education/Training Program; Visit Provider Student in an Organized Health Care Education/Training Program
DX: I10 Essential (primary) hypertension (principal); F03.90 Unspecified dementia, unspecified severity, without behavioral disturbance, psychotic disturbance, mood disturbance, and anxiety
CPT/HCPCS: 36415; 80053; 85025

== ENCOUNTER 2022-11-07 03:11 | Observation (INO) | payer OTHER, SELFPAY ==
[2021-04-15 23:02] VITALS: BMI 28.3
[2022-11-07] VITALS (9 sets, daily range): BP systolic 81–126; BP diastolic 45–67; PULSE 74–121; RESP 12–24; TEMP 36.1–36.8; O2SAT 94–100; BMI 26.2
--- NOTE | 2022-11-07 03:17 | DI.RAD.S_ITS ---
PROCEDURE: XR CHEST 1V INDICATIONS: chest pain TECHNIQUE: One view of the chest was acquired. COMPARISON: None. FINDINGS: Surgical changes and devices: None. Lungs and pleura: Lungs are clear. No pleural effusions or pneumothorax. Mediastinum: Mediastinal contours appear normal. Heart size is normal. Hiatal hernia is present. Bones and chest wall: No suspicious bony lesions. Overlying soft tissues appear unremarkable. IMPRESSION: No acute radiographic abnormality. Agree with preliminary report. Hiatal hernia is present. Dictated by: Rogers Hobson M.D. on 11/07/2022 at 7:31 Approved by: Rogers Hobson M.D. on 11/07/2022 at 7:32
--- NOTE | 2022-11-07 03:34 | ED.GENADULT ---
HPI - General Adult General Chief complaint: Weakness Stated complaint: wont eat/drink alzheimers Time Seen by Provider: 11/07/22 03:16 History of Present Illness HPI narrative: 77-year-old female nonsmoker with history of hypertension and Alzheimer's dementia presents by EMS for evaluation at the request of her as she was too weak to get off the toilet. He reports that she is not had anything to eat for least 1 week and seems to be able to keep liquids down but is refusing to drink. She is had no fever. She has had no chest pain or trouble breathing. She has had no nausea, vomiting or diarrhea and there is no report of abdominal pain Related Data Home Medications Medication Instructions Recorded Confirmed ascorbic acid (vitamin C) 500 mg 500 mg PO DAILY 06/04/21 06/08/21 tablet (Vitamin C) ferrous sulfate 325 mg (65 mg 325 mg PO DAILY 06/04/21 06/08/21 iron) tablet (iron) Previous Rx's Medication Instructions Recorded lisinopril 10 mg tablet 10 mg PO DAILY #30 tabs 04/16/21 Allergies Allergy/AdvReac Type Severity Reaction Status Date / Time No Known Drug Allergies Allergy Verified 04/15/21 14:55 Review of Systems Review of Systems Narrative: GENERAL: Denies chills, fatigue, malaise, fever, sweats. HEENT: Denies sinus pain, ear pain, sore throat, difficulty swallowing, dizziness. RESPIRATORY: Denies dyspnea, cough, wheezing, hemoptysis, sputum. CARDIOVASCULAR: Denies chest pain, palpitations, orthopnea, edema, GASTROINTESTINAL: Denies nausea, vomiting, abdominal pain, diarrhea, constipation, melena. : Denies dysuria, frequency, incontinence, hematuria, urinary retention. MUSCULOSKELETAL: denies weakness, joint pain, or bony pain SKIN: Denies rash, skin lesions, or other NEUROLOGIC: Denies weakness, headache, numbness, change in speech, confusion, seizures, incoordination. PSYCHIATRIC: No concerning psychosocial issues. 12 point review of systems is negative except for those stated above Patient History Medical History Patient denies medical problems Surgical History History of tonsillectomy Social History marital status: household members: spouse lives independently: Yes Smoking Status: Never smoker alcohol intake: never substance use type: does not use Smoking Status: Never smoker alcohol intake frequency: holidays/special occasions only Substance Use Type: does not use Exam Narrative Exam Narrative: GENERAL: [77] year old patient appears stated age. Well-developed patient, in mild distress. Alert, confused, GCS 14 HEAD: Atraumatic. Normocephalic. EYES: Pupils equal round and reactive. Extraocular motions intact. No scleral icterus. No injection or drainage. ENT: Dry mucous membranes Nose without bleeding, purulent drainage. Throat without erythema, tonsillar hypertrophy or exudate. Airway patent. NECK: Trachea midline. Non tender CARDIOVASCULAR: Regular rate and rhythm without murmurs, gallops, or rubs. RESPIRATORY: Clear to auscultation. Breath sounds equal bilaterally. No wheezes, rales, or rhonchi. GASTROINTESTINAL: Abdomen soft, non-tender, nondistended. EXTREMITIES: No edema or joint tenderness. BACK: Nontender without deformity or crepitance. No flank tenderness. NEURO: Cranial nerves 2-12 grossly intact SKIN: Poor skin turgor No rash or erythema of visible areas Initial Vital Signs Initial Vital Signs: Vital Signs Temperature 98.2 F 11/07/22 03:15 Pulse Rate 90 11/07/22 03:15 Respiratory Rate 18 11/07/22 03:15 Blood Pressure 126/67 11/07/22 03:15 Pulse Oximetry 98 11/07/22 03:15 Oxygen Delivery Method Room Air 11/07/22 03:15 Course Course Course Narrative: Fractional Excretion of Sodium (FENa) from [facility] on 11/07/2022 All calculations should be rechecked by clinician prior to use RESULT SUMMARY: 1.9 % FENa Intrinsic e.g. ATN, AIN, glomerulonephritides INPUTS: Serum sodium ?> 131 mEq/L Serum creatinine ?> 3.40 mg/dL Urine sodium ?> 56 mEq/L Urine creatinine ?> 75 mg/dL Orders Ordered: ED Orders 11/07/22 03:17 XR chest 1V Stat EKG-12 Lead Stat 11/07/22 03:47 Complete Blood Count AUTO DIFF Stat Comprehensive Metabolic Panel Stat Ketones (Beta-Hydroxybutyrate) Stat Lipase Stat Procalcitonin Stat Troponin & CK Cardiac Panel Stat 11/07/22 03:58 Creatinine Urine Random Stat Sodium Urine Random Stat Urinalysis and Microscopic Stat Urine Culture Stat Urine Drug Screen, Rapid Stat 11/07/22 04:10 CT kidney ureter bladder (KUB) Stat 11/07/22 04:56 VBG [Venous Blood Gas] Stat Sodium Chloride (Normal Saline 0.9%) 1,000 mls @ 150 mls/hr IV CONT CLAUDETTE Last Admin: 11/07/22 04:02 Dose: 150 mls/hr Documented By: DORA Discontinued Medications Furosemide (Furosemide 40 Mg/4 Ml Vial) 40 mg IV NOW ONE Stop: 11/07/22 04:11 Last Admin: 11/07/22 04:29 Dose: 40 mg Documented By: DAKOTA Haloperidol (Haloperidol 5 Mg/Ml Vial) 2 mg IV Q1H PRN PRN Reason: Agitation Last Admin: 11/07/22 04:03 Dose: 2 mg Documented By: DORA Sodium Chloride (Normal Saline 0.9%) 1,000 mls @ 1,000 mls/hr IV BOLUS ONE Stop: 11/07/22 05:09 Last Admin: 11/07/22 04:29 Dose: 1,000 mls/hr Documented By: DAKOTA Ceftriaxone Sodium 1,000 mg/ (Sodium Chloride) 100 mls @ 200 mls/hr IV NOW ONE Stop: 11/07/22 05:04 Last Titration: 11/07/22 05:48 Dose: Infused Vital Signs Vital signs: Vital Signs - 8 hr 11/07/22 03:15 11/07/22 04:47 11/07/22 05:00 Temperature 98.2 F Pulse Rate 90 121 H 118 H Respiratory Rate 18 18 20 Blood Pressure 126/67 Pulse Oximetry 98 98 99 Oxygen Delivery Method Room Air 11/07/22 05:05 11/07/22 05:05 11/07/22 05:30 Temperature Pulse Rate 121 H Respiratory Rate Blood Pressure 106/49 L 100/54 L Pulse Oximetry 99 Oxygen Delivery Method 11/07/22 05:30 Temperature Pulse Rate 110 H Respiratory Rate 18 Blood Pressure Pulse Oximetry 99 Oxygen Delivery Method Medical Decision Making Lab Data 11/07/22 03:47 11/07/22 03:47 Labs: Lab Results 03/12/23 03/12/23 03/12/23 Range/Units 03:47 03:47 03:58 WBC 12.8 H (4.5-11.0) X10^3/uL RBC 3.79 L (4.0-5.2) X10^6/uL Hgb 11.3 L (12.0-16.0) g/dL Hct 34.3 L (36-46) % MCV 90.5 (80-100) fL MCH 29.7 (26-34) PG MCHC 32.8 (30-36) % RDW 12.7 (11.6-14.8) % Plt Count 434 H (150-400) X10^3/uL Neut % (Auto) Not Reportable Lymph % (Auto) Not Reportable [place] % (Auto) Not Reportable Eos % (Auto) Not Reportable Baso % (Auto) Not Reportable Lymph # (Auto) Not Reportable [place] # (Auto) Not Reportable Baso # (Auto) Not Reportable VBG pH (7.33-7.43) VBG pCO2 (45-50) mmHg VBG pO2 (35-45) mmHg VBG HCO3 (24-28) mmol/L VBG Total CO2 (24-29) mmol/L VBG O2 Saturation (70-75) % VBG Base Excess (0-4) mmol/L FiO2 Sodium 131 L (137-145) mmol/L Potassium 6.3 H* (3.4-5.1) mmol/L Chloride 110 H (98-107) mmol/L Carbon Dioxide < 5 L* (22-32) mmol/L BUN 101 H (7-17) mg/dL Creatinine 3.40 H (0.52-1.04) mg/dL Estimated GFR 13 L (>60) mL/min BUN/Creatinine Ratio 29.7 H (6-22) Glucose 107 (80-110) mg/dL Calcium 10.3 H (8.4-10.2) mg/dL Total Bilirubin 0.4 (0.2-1.3) mg/dL AST 17 (14-36) IU/L ALT 19 (<35) IU/L Alkaline Phosphatase 97 (38-126) U/L Total Creatine Kinase 31 (30-135) U/L CK-MB (CK-2) TNP CK-MB (CK-2) Rel Index TNP Troponin I 0.022 (0.01-0.034) ng/mL Total Protein 7.3 (6.3-8.2) g/dL Albumin 3.7 (3.5-5.0) g/dL Globulin 3.6 (1.7-4.1) g/dL Albumin/Globulin Ratio 1.0 (1.0-2.8) Lipase 834 H (23-300) U/L Procalcitonin 0.51 H (<0.5) ng/mL Urine Color Light brown Urine Appearance Cloudy Urine pH 6 (4.5-8.0) Ur Specific [place] 1.030 (1.000-1.035) Urine Protein 4+ H (Negative) Urine Glucose (UA) Negative (Negative) g/dL Urine Ketones Negative (NEGATIVE) Urine Occult Blood 3+ H (Negative) Urine Nitrate Not Reportable Urine Bilirubin Negative (NEGATIVE) Urine Urobilinogen Normal (0.2) E.U./dL Ur Leukocyte Esterase 3+ H (NEGATIVE) Urine RBC None seen (0-5/HPF) Urine WBC >100/hpf H (0-5/HPF) Urine Bacteria Many (>30) H (None) Ur Culture Indicated? Specimen cultured Ur Random Sodium (30-90) mmol/L Urine Creatinine mg/dL U Opiates 300ng/mL cut (Negative) Ur Oxycodone Screen (Negative) Urine Methadone Screen (Negative) Ur Barbiturates Screen (Negative) U Tricyclic Antidepress (Negative) Ur Phencyclidine Scrn (Negative) Ur Amphetamines Screen (Negative) U Methamphetamines Scrn (Negative) Ur MDMA Scrn (Ecstasy) (Negative) U Benzodiazepines Scrn (Negative) Urine Cocaine Screen (Negative) U Marijuana (THC) Screen (Negative) Ketones 1.61 H (<0.27) mmol/L 11/07/22 11/07/22 11/07/22 Range/Units 03:58 03:58 04:56 WBC (4.5-11.0) X10^3/uL RBC (4.0-5.2) X10^6/uL Hgb (12.0-16.0) g/dL Hct (36-46) % MCV (80-100) fL MCH (26-34) PG MCHC (30-36) % RDW (11.6-14.8) % Plt Count (150-400) X10^3/uL Neut % (Auto) Lymph % (Auto) [place] % (Auto) Eos % (Auto) Baso % (Auto) Lymph # (Auto) [place] # (Auto) Baso # (Auto) VBG pH 7.16 L* (7.33-7.43) VBG pCO2 20.2 L (45-50) mmHg VBG pO2 37 (35-45) mmHg VBG HCO3 7 L (24-28) mmol/L VBG Total CO2 8 L (24-29) mmol/L VBG O2 Saturation 57 L (70-75) % VBG Base Excess -21.0 L (0-4) mmol/L FiO2 21 Sodium (137-145) mmol/L Potassium (3.4-5.1) mmol/L Chloride (98-107) mmol/L Carbon Dioxide (22-32) mmol/L BUN (7-17) mg/dL Creatinine (0.52-1.04) mg/dL Estimated GFR (>60) mL/min BUN/Creatinine Ratio (6-22) Glucose (80-110) mg/dL Calcium (8.4-10.2) mg/dL Total Bilirubin (0.2-1.3) mg/dL AST (14-36) IU/L ALT (<35) IU/L Alkaline Phosphatase (38-126) U/L Total Creatine Kinase (30-135) U/L CK-MB (CK-2) CK-MB (CK-2) Rel Index Troponin I (0.01-0.034) ng/mL Total Protein (6.3-8.2) g/dL Albumin (3.5-5.0) g/dL Globulin (1.7-4.1) g/dL Albumin/Globulin Ratio (1.0-2.8) Lipase (23-300) U/L Procalcitonin (<0.5) ng/mL Urine Color Urine Appearance Urine pH (4.5-8.0) Ur Specific [place] (1.000-1.035) Urine Protein (Negative) Urine Glucose (UA) (Negative) g/dL Urine Ketones (NEGATIVE) Urine Occult Blood (Negative) Urine Nitrate Urine Bilirubin (NEGATIVE) Urine Urobilinogen (0.2) E.U./dL Ur Leukocyte Esterase (NEGATIVE) Urine RBC (0-5/HPF) Urine WBC (0-5/HPF) Urine Bacteria (None) Ur Culture Indicated? Ur Random Sodium 56 (30-90) mmol/L Urine Creatinine 75.2 mg/dL U Opiates 300ng/mL cut Negative (Negative) Ur Oxycodone Screen Negative (Negative) Urine Methadone Screen Negative (Negative) Ur Barbiturates Screen Negative (Negative) U Tricyclic Antidepress Negative (Negative) Ur Phencyclidine Scrn Negative (Negative) Ur Amphetamines Screen Negative (Negative) U Methamphetamines Scrn Negative (Negative) Ur MDMA Scrn (Ecstasy) Negative (Negative) U Benzodiazepines Scrn Negative (Negative) Urine Cocaine Screen Negative (Negative) U Marijuana (THC) Screen Negative (Negative) Ketones (<0.27) mmol/L MDM Narrative Medical decision making narrative: CC: 77-year-old female with profound weakness Complicating co-morbidities: Age, Alzheimer's, hypertension Data collected from: Patient, and independent story from Medical records reviewed: Prior notes reviewed in our EMR Differential considered, but not limited to: Dehydration, renal failure, electrolyte abnormality, underlying infection versus other Exam documented above, pertinent findings include: Confused, dry mucous membranes, poor skin turgor Lab Test results independently reviewed as above. Pertinent findings: Slight leukocytosis of 12.8 with no anemia, sodium slightly decreased at 131, potassium elevated at 6.3 without hemolysis, CO2 less than 5, creatinine 3.4 up from 0.64, lipase a 34, procalcitonin 0.51 Imaging Reviewed: CT KUB notes moderate to severe bilateral hydroureteronephrosis with catheterized bladder and bladder wall thickening cystitis versus neoplasm within differential Independently reviewed EKG as above Scores Used: FeNa Consultations: hospitalist (Stephanie) happy to accept, will see shortly, I will write bridging orders Treatments: saline, lasix, lokelma. then tells us she is comfort measures Discharge Plan Departure Patient Disposition: Admitted As Inpatient Clinical Impression: Acute kidney injury, Metabolic acidosis, Acute UTI, Acute hyperkalemia Admit Date/Time: 11/07/22 05:33 Admit Provider: Gabriel Brown
[2022-11-07] MEDS: SODIUM CHLORIDE 0.9% 1,000 ML 150 ML IV ×2 (04:02→06:17)
[2022-11-07 04:03] LABS: Hematocrit 34.3 % (36-46); Hemoglobin 11.3 g/dL (12.0-16.0); Mean Corpuscular HGB Conc 32.8 % (30-36); Mean Corpuscular Hemoglobin 29.7 PG (26-34); Mean Corpuscular Volume 90.5 fL (80-100); Platelet Count 434 X10^3/uL (150-400); Red Blood Cell Count 3.79 X10^6/uL (4.0-5.2); Red Cell Distribution Width 12.7 % (11.6-14.8); White Blood Cell Count 12.8 X10^3/uL (4.5-11.0)
[2022-11-07] MEDS: HALOPERIDOL 5 MG/ML VIAL 2 MG IV (04:03)
[2022-11-07 04:04] LABS: Add Manual Diff / Slide Review YES; HEMOLYSIS < 15 (0-50)
[2022-11-07 04:05] LABS: Alanine Aminotransferase 19 IU/L (<35); Albumin 3.7 g/dL (3.5-5.0); Alkaline Phosphatase 97 U/L (38-126); Aspartate Aminotransferase 17 IU/L (14-36); BUN Creatinine Ratio 29.7 (6-22); Bilirubin Total 0.4 mg/dL (0.2-1.3); Blood Urea Nitrogen 101 mg/dL (7-17); Calcium 10.3 mg/dL (8.4-10.2); Chloride 110 mmol/L (98-107); Creatine Kinase 31 U/L (30-135); Estimated Glomerular Filt Rate 13 mL/min (>60); Globulin 3.6 g/dL (1.7-4.1); Glucose 107 mg/dL (80-110); Lipase 834 U/L (23-300); Sodium 131 mmol/L (137-145); Total Protein 7.3 g/dL (6.3-8.2)
[2022-11-07 04:07] LABS: Ketones (Beta-Hydroxybutyrate) 1.61 mmol/L (<0.27)
[2022-11-07 04:10] LABS: Potassium 6.3 mmol/L (3.4-5.1)
--- NOTE | 2022-11-07 04:10 | DI.CT.S_ITS ---
PROCEDURE: CT KIDNEY URETER BLADDER (KUB) INDICATIONS: renal failure, obstructive uropathy? TECHNIQUE: Axial sections were acquired from the lung bases to the pubic symphysis. Coronal and sagittal reformats were performed. For radiation dose reduction, the following was used: automated exposure control, adjustment of mA and/or kV according to patient size. COMPARISON: None. FINDINGS: Image quality: Good Lower chest: Lung base nodules and opacities are present, most confluent in the peripheral right costophrenic angle (3/12). Moderate large hiatal hernia. Coronary calcifications. Solid organs: Limited evaluation without intravenous contrast. There are small liver granulomas. Gallbladder is under distended. No pathologic dilation of the biliary tree or pancreatic duct. Splenic granulomas also present. Adenomatous thickening of the bilateral adrenal glands suspected bilateral adrenal adenomas, with superimposed adenomatous thickening. Consider correlation for functional status with laboratory testing. Bilateral moderate to severe hydro ureteral nephrosis. Subcentimeter renal lesions are too small to characterize. Vessels and lymph nodes: No abdominal aortic aneurysm. No pathologic adenopathy identified by size criteria. Bowel and peritoneum: Moderate distention of the duodenum. No other signs of complete bowel obstruction. There are colonic diverticula. No pathologic ascites. Body wall: Unremarkable Pelvis: Suspected uterine fibroids. Reproductive organs are not well evaluated on CT. There is a suspected submucosal uterine fibroid. Bladder is under distended, with wall thickening and Calvin in place. The Calvin balloon is in the lower bladder segment. Bones: Degenerative changes. No acute or suspicious osseous abnormality. IMPRESSION: Moderate severe bilateral hydroureteronephrosis. Bladder wall thickening. Bladder is not well evaluated on this noncontrast study with Calvin in place. Consider urologic consultation. No calcified obstructing stone identified. Bilateral small lung base nodules may be infectious or inflammatory. Recommend three-month follow-up chest CT. Moderate to large hiatal hernia. Other incidental and favored nonacute findings above. No significant discrepancy from the prelim report. Dictated by: Rogers Hobson M.D. on 11/07/2022 at 7:32 Approved by: Rogers Hobson M.D. on 11/07/2022 at 7:39
[2022-11-07 04:11] LABS: Carbon Dioxide < 5 mmol/L (22-32)
[2022-11-07 04:19] LABS: Troponin I 0.022 ng/mL (0.01-0.034)
[2022-11-07 04:23] LABS: Procalcitonin 0.51 ng/mL (<0.5)
[2022-11-07 04:24] LABS: UR Morphine/Opiate cutoff 300 Negative (Negative); Ur Creatinine 50 (Normal); Ur Specific Gravity 1.025 (Normal); Urine Amphetamines Negative (Negative); Urine Barbiturates Negative (Negative); Urine Benzodiazepines Negative (Negative); Urine Cocaine Negative (Negative); Urine MDMA Negative (Negative); Urine Methadone Negative (Negative); Urine Methamphetamines Negative (Negative); Urine Oxycodone Negative (Negative); Urine Phencyclidine Negative (Negative); Urine Tetrahydrocannabinol Negative (Negative); Urine Tricyclic Antidepressant Negative (Negative); Urine pH 5 (Normal)
[2022-11-07] MEDS: FUROSEMIDE 40 MG/4 ML VIAL IV (04:29)
[2022-11-07] MEDS: SODIUM CHLORIDE 0.9% 1,000 ML 1000 ML IV (04:29)
[2022-11-07 04:34] LABS: Creatinine Urine Random 75.2 mg/dL; Sodium Urine Random 56 mmol/L (30-90)
[2022-11-07] MEDS: SODIUM ZIRCONIUM CYCLOSILICATE 10 GM POWD.PACK PO (04:51)
[2022-11-07 04:55] LABS: Appearance Urine UA CLOUDY; Color Urine UA LIGHT BROWN; Protein Urine UA 4+ (Negative); pH Urine UA 6 (4.5-8.0)
[2022-11-07 04:56] LABS: Bilirubin Urine UA NEGATIVE (NEGATIVE); Glucose Urine UA NEGATIVE (Negative); Ketones Urine UA NEGATIVE (NEGATIVE); Leukocyte Esterase Urine UA 3+ (NEGATIVE); Occult Blood Urine UA 3+ (Negative); Urobilinogen Urine UA Normal E.U./dL (0.2)
[2022-11-07] MEDS: cefTRIAXone 1,000 MG in SODIUM CHLORIDE 0.9% 100 ML 200 MG IV (05:14)
[2022-11-07 05:19] LABS: Fractionated Inspired Oxygen 21; HCO3 VBG 7 mmol/L (24-28); Oxygen Saturation VBG 57 % (70-75); PCO2 VBG 20.2 mmHg (45-50); PO2 VBG 37 mmHg (35-45); Total CO2 VBG 8 mmol/L (24-29)
[2022-11-07 05:20] LABS: pH VBG 7.16 (7.33-7.43)
[2022-11-07 05:28] LABS: Bacteria Urine Many (>30); Culture Indicated Urine Specimen Cultured; RBC Urine None Seen (0-5/HPF); WBC Urine >100/HPF (0-5/HPF)
[2022-11-07 06:34] LABS: Total Cells Counted 100
[2022-11-07 06:35] LABS: Neutrophils Absolute Manual 10368 /uL (3000-5900); RBC Morphology Normal Morphology
--- NOTE | 2022-11-07 12:12 | P.HP_ITS ---
History of Present Illness History of Present Illness Date Patient Seen: 11/07/22 Time Patient Seen: 11:00 Date of Onset of Symptoms: 10/24/22 Chief complaint: wont eat/drink alzheimers Narrative: CC: I want to go home pt with advancing alzheimers dementia has been cared fro by her at home with gradually declining status. He is her guardian and she is generally disoriented at baseline. 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 he is not in shape to provide care at home comfort measures ordered - she appears comfortable and tired today Patient History Medical History Patient denies medical problems Surgical History History of tonsillectomy Family & Social History Social History: household members spouse Prior Living Arrangements House lives independently Yes Safety & Behavioral: Feels Safe in Current Yes Environment Been Physically Hurt or No Threatened By a Person Tobacco & Substance use: Smoking Status Never smoker alcohol intake never alcohol intake frequency holiday/special occasion Substance Use Type does not use Meds Home Medications and Allergies Home Medications Medication Instructions Recorded Confirmed Type lisinopril 10 mg tablet 10 mg PO DAILY #30 tabs 04/16/21 06/08/21 Rx ascorbic acid (vitamin C) 500 mg 500 mg PO DAILY 06/04/21 06/08/21 History tablet (Vitamin C) ferrous sulfate 325 mg (65 mg 325 mg PO DAILY 06/04/21 06/08/21 History iron) tablet (iron) Allergies Allergy/AdvReac Type Severity Reaction Status Date / Time No Known Drug Allergies Allergy Verified 04/15/21 14:55 Review of Systems Review of Systems Narrative: all systems reviewed and negative except as otherwise documented in HPI Exam Vital Signs (past 8 hours): - 11/07/22 04:47 11/07/22 05:00 11/07/22 05:05 Temperature Pulse Rate 121 H 118 H Respiratory Rate 18 20 Blood Pressure 106/49 L Pulse Oximetry 98 99 Oxygen Delivery Method Oxygen Flow Rate 11/07/22 05:05 11/07/22 05:30 11/07/22 05:30 Temperature Pulse Rate 121 H 110 H Respiratory Rate 18 Blood Pressure 100/54 L Pulse Oximetry 99 99 Oxygen Delivery Method Oxygen Flow Rate 11/07/22 06:20 11/07/22 06:45 11/07/22 10:12 Temperature 97.7 F Pulse Rate 107 H Respiratory Rate 23 12 Blood Pressure 99/49 L Pulse Oximetry 94 Oxygen Delivery Method Room Air Oxygen Flow Rate 11/07/22 11:36 Temperature 97.3 F L Pulse Rate 105 H Respiratory Rate 24 Blood Pressure 81/45 L Pulse Oximetry 100 Oxygen Delivery Method Oxygen Flow Rate 0 Oxygen Delivery Method Room Air Oxygen Flow Rate 0 Narrative Exam Narrative: withdrawn elder laying in bed Const General: comfortable, No in distress and frail appearing HENMT Head: normocephalic and atraumatic Eyes General: appearance normal, both eyes and all related structures Resp Other: moving air well, tachypnea Cardio Other: regular rate GI Other: soft nontender nondistended Neuro General: patient alert, patient awake and not oriented x3 Objective Labs 11/07/22 03:47 11/07/22 03:47 Labs: Laboratory Results - last 24 hr 11/07/22 11/07/22 11/07/22 03:47 03:47 03:58 WBC 12.8 H RBC 3.79 L Hgb 11.3 L Hct 34.3 L MCV 90.5 MCH 29.7 MCHC 32.8 RDW 12.7 Plt Count 434 H Neut % (Auto) Not Reportable Lymph % (Auto) Not Reportable Pershing % (Auto) Not Reportable Eos % (Auto) Not Reportable Baso % (Auto) Not Reportable Lymph # (Auto) Not Reportable Pershing # (Auto) Not Reportable Baso # (Auto) Not Reportable Total Counted 100 Seg Neutrophils % 80.0 H Band Neutrophils % 1.0 L Lymphocytes % (Manual) 12.0 L Monocytes % (Manual) 3.0 Eosinophils % (Manual) 1.0 L Basophils % (Manual) 1.0 Metamyelocytes % 1.0 H Myelocytes % 1.0 H Neutrophils # (Manual) 44219 H RBC Morphology Normal morphology VBG pH VBG pCO2 VBG pO2 VBG HCO3 VBG Total CO2 VBG O2 Saturation VBG Base Excess FiO2 Sodium 131 L Potassium 6.3 H* Chloride 110 H Carbon Dioxide < 5 L* BUN 101 H Creatinine 3.40 H Estimated GFR 13 L BUN/Creatinine Ratio 29.7 H Glucose 107 Calcium 10.3 H Total Bilirubin 0.4 AST 17 ALT 19 Alkaline Phosphatase 97 Total Creatine Kinase 31 CK-MB (CK-2) TNP CK-MB (CK-2) Rel Index TNP Troponin I 0.022 Total Protein 7.3 Albumin 3.7 Globulin 3.6 Albumin/Globulin Ratio 1.0 Lipase 834 H Procalcitonin 0.51 H Urine Color Light brown Urine Appearance Cloudy Urine pH 6 Ur Specific [place] 1.030 Urine Protein 4+ H Urine Glucose (UA) Negative Urine Ketones Negative Urine Occult Blood 3+ H Urine Nitrate Not Reportable Urine Bilirubin Negative Urine Urobilinogen Normal Ur Leukocyte Esterase 3+ H Urine RBC None seen Urine WBC >100/hpf H Urine Bacteria Many (>30) H Ur Culture Indicated? Specimen cultured Ur Random Sodium Urine Creatinine U Opiates 300ng/mL cut Ur Oxycodone Screen Urine Methadone Screen Ur Barbiturates Screen U Tricyclic Antidepress Ur Phencyclidine Scrn Ur Amphetamines Screen U Methamphetamines Scrn Ur MDMA Scrn (Ecstasy) U Benzodiazepines Scrn Urine Cocaine Screen U Marijuana (THC) Screen Ketones 1.61 H 11/07/22 11/07/22 11/07/22 03:58 03:58 04:56 WBC RBC Hgb Hct MCV MCH MCHC RDW Plt Count Neut % (Auto) Lymph % (Auto) Pershing % (Auto) Eos % (Auto) Baso % (Auto) Lymph # (Auto) Pershing # (Auto) Baso # (Auto) Total Counted Seg Neutrophils % Band Neutrophils % Lymphocytes % (Manual) Monocytes % (Manual) Eosinophils % (Manual) Basophils % (Manual) Metamyelocytes % Myelocytes % Neutrophils # (Manual) RBC Morphology VBG pH 7.16 L* VBG pCO2 20.2 L VBG pO2 37 VBG HCO3 7 L VBG Total CO2 8 L VBG O2 Saturation 57 L VBG Base Excess -21.0 L FiO2 21 Sodium Potassium Chloride Carbon Dioxide BUN Creatinine Estimated GFR BUN/Creatinine Ratio Glucose Calcium Total Bilirubin AST ALT Alkaline Phosphatase Total Creatine Kinase CK-MB (CK-2) CK-MB (CK-2) Rel Index Troponin I Total Protein Albumin Globulin Albumin/Globulin Ratio Lipase Procalcitonin Urine Color Urine Appearance Urine pH Ur Specific [place] Urine Protein Urine Glucose (UA) Urine Ketones Urine Occult Blood Urine Nitrate Urine Bilirubin Urine Urobilinogen Ur Leukocyte Esterase Urine RBC Urine WBC Urine Bacteria Ur Culture Indicated? Ur Random Sodium 56 Urine Creatinine 75.2 U Opiates 300ng/mL cut Negative Ur Oxycodone Screen Negative Urine Methadone Screen Negative Ur Barbiturates Screen Negative U Tricyclic Antidepress Negative Ur Phencyclidine Scrn Negative Ur Amphetamines Screen Negative U Methamphetamines Scrn Negative Ur MDMA Scrn (Ecstasy) Negative U Benzodiazepines Scrn Negative Urine Cocaine Screen Negative U Marijuana (THC) Screen Negative Ketones Assessment & Plan Assessment & Plan narrative: #acute kidney failure #sepsis #urinary tract infection #metabolic acidemia, compensating with respiratory alkalosis #hyperkalemia advanced disease process, got some ivf and abx in ED will hold those going forward after talking to family pt looks comfortable today, continue comfort measures #advanced alzheimers dementia Pt has been not eating for two weeks per , no real fluids for a week either, disoriented Extensive discussion with today he is primary guardian does not desire heroic measures she is comfort care #hx of hypertension takes lisinopril at home, hold for now dispo: based on initial labs and tenuous BP today I do estimate demise is imminent potentially within 48 hours. Not suitable for discharge home without HH and she does not want anyone coming into her home. CM exploring options. Code: DNR/DNI MDM: Mr. Gray [phone] diet: clears, as desired Time Spent With Patient Critical Care time: I spent a total of [] minutes of critical care time on this patient's care today; this time is exclusive of procedural time. Quality VTE Deep Vein Thrombosis/Pulmonary Embolism Present on Admission: No
--- NOTE | 2022-11-07 13:10 | PT.IIE ---
Surgical History (Last Reviewed 11/07/22 @ 12:21 by Gabriel Brown MD) History of tonsillectomy Medical History (Last Reviewed 11/07/22 @ 12:21 by Gabriel Brown MD) Patient denies medical problems Physical Therapy Inpatient Evaluation/Re-Eval M1 PT/OT-IP Prior Functional Status Start: 11/07/22 13:09 Freq: NEEDED Status: Active Protocol: Document 11/07/22 12:55 DCW (Rec: 11/07/22 13:22 DC [id number]) Medical Review Prior Functional Status Medical History Reviewed Yes Prior Functional Level (Other details) Pt lives with , who, per medical history, acts as primary caregiver. Increased confusion, increasing burden of care, worsening weakness and instability recently Social History Household Members spouse Living Arrangements House Additional Social History Comment Poor historian, reports she does not use an AD at baseline , not available at the moment, unclear normal baseline function M2 PT-IP Current Condition Start: 11/07/22 13:09 Freq: NEEDED Status: Active Protocol: Document 11/07/22 12:55 DCW (Rec: 11/07/22 13:22 DCW [id number]) Physical Therapy Current Condition Current Condition Evaluation Date 11/07/22 Treatment Diagnosis Weakness, failure to thrive Onset Date 11/07/22 M3 PT-IP Subjective Start: 11/07/22 13:09 Freq: NEEDED Status: Active Protocol: Document 11/07/22 12:55 DCW (Rec: 11/07/22 13:22 [facility] [id number]) Subjective Physical Therapy Visit Type Type Initial Evaluation Visit Start Time 12:55 Visit Stop Time 13:10 Total Visit Minutes 15 Notes Pt in bed upon PT entering room, appeared to have just ripped out IV line. RN entered shortly after. Pt oriented only to self. Variable levels of agreeable to PT. Number of DRUG SAFETY ASSISTANT Visits 0 Physical Therapy Visit Comments Patient Comments I can do anything I put my mind to. I just don't want to do anything. Therapy Pain Assessment Pain Present Pain Present Denied Pain M4 PT-IP Mobility and Gait Start: 11/07/22 13:09 Freq: NEEDED Status: Active Protocol: Document 11/07/22 12:55 DCW (Rec: 11/07/22 13:22 DCW [id number]) PT-Bed Mobility Assessment Supine to Sit Supine to Sit Independent Sit to Supine Sit to Supine Independent Scooting Scooting to Edge of Bed Standby Assistance PT-Transfer Assessment Comments Mobility Comments Refused anything further than sitting EOB M5 PT-IP Objective Assessments Start: 11/07/22 13:09 Freq: NEEDED Status: Active Protocol: Document 11/07/22 12:55 DCW (Rec: 11/07/22 13:22 DCW [id number]) Orientation Orientation/Cognition Level of Alertness Confusional State Orientation Name,Birthday Safety Awareness Decreased Safety Awareness Memory Description Short Term Impaired Gross Range of Motion Lower Extremity ROM Assessment Within Functional Limits Strength Comments Strength Comments Able to move limbs against gravity upon request, unable to follow directions for proper muscle testing M7 PT-IP Assessment and Plan Start: 11/07/22 13:09 Freq: NEEDED Status: Active Protocol: Document 11/07/22 12:55 DCW (Rec: 11/07/22 13:22 DCW [id number]) PT Summary Assessment and Plan Potential Rehabilitation Potential Fair Status of Condition at Evaluation Unstable Summary Assessment Summary Pt initially agreeable to PT, however then decided she would only get to sit on EOB, refused to stand, bed mobility Ind<->SBA based on understanding of task. Upon getting to EOB, pt got scared due to the height of the bed, and returned to supine. This was repeated x3, where should would almost get in position to attempt a stand, and would then decided against it and lie back down. LE MMT at least 3+/5, but was unable to follow direction for proper testing. Apologized repeatedly that she did not want to be rude or difficult, however still refused to do anything other than briefly sit EOB. After third attempt, pt rolled over and said I want my mom, leave me alone, and refused to respond to therapist any more. Will need to assess transfers and gait at a later time. Goals Transfer Goal Contact Guard Assistance Gait Goal Contact Guard Assistance,Front Wheel Walker Gait Distance 50' Days to Meet Goals 3 Frequency of Treatment Frequency Of Treatment Once a Day Treatment Plan Physical Therapy Treatment Plan Transfer Training,Gait Training,Therapeutic Exercise, Balance Retraining,Discharge Planning Recommendations To Nursing Amount of Assist Needed 1 Person Assist Discharge Recommendations PT Discharge Recommendations Home with 24/7 Assist Available,Home vs SNF Other Discharge Recommendations Will likely require discharge to SNF if continues to be unable to properly care for her Transportation Needs at Discharge Private Vehicle,Wheelchair/ Cabulance
--- NOTE | 2022-11-07 13:39 | PC.NURSE ---
Patient awake and alert but confused. She pulled out her iv, and does not have one now. She is comfort care. She has pulled out 2 ivs, will leave this out for now as she is not requiring any pain medication or iv meds. Will talk to float and see if she can start one. Patient ate at lunch and is napping now.
--- NOTE | 2022-11-07 15:52 | CM.DANOTE ---
DCP Assessment: patient is a 77 yr old female with advanced alzhimers dementia who is weak and not been eating for over a week. Patients called EMS to bring the patient into the hospital since he wasn't able to get her off the toilet. Patient not A&O during CM/ CHILD ADVOCATE visit. CM called patients Eliu at [phone] and [phone] with no answer. CM LVM asking patients to call CM back to discuss DC planning. Dr. Brown saw the patient today at the bedside and placed the patient on comfort care with plan of DC either home with HH, Hospice or to SNF for hospice stay however that will be private pay which has not been discussed yet with patients spouse. Insurance:[facility] PCP: Daphne Beltran Plan: To discuss DC plan with patients , Home with Hospice, home with HH or SNF hospice stay private pay. these options will be discussed with patient onces he is able to be reached. CM team will continue to work on safe DC plan for the patient. Komal Melendez RNassistant account manager Discharge Planning/Care Management CM Discharge Assessment Start: 11/07/22 15:43 Freq: Status: Active Protocol: Document 11/07/22 15:43 HS (Rec: 11/07/22 15:52 HS [id number]) Discharge Planning Assessment Assigned Grease Worker Lorelei UP DPOA/Assigned Designee Name Eliu Gray- Contact Information [phone], Advance Directives? Yes Advance Directives on File No: Requested from , [place] History Provided By Medical Record Has Patient been admitted in last 30 No days? Prior Living Arrangements House Comment Patient lives with her in [place] Household Members spouse Type of transporation used prior to Relies on Others admit Independent with ADL's No Is patient alert and oriented? No: patient able to answer Yes no questions but not A&O at time of visit Needs Assistance With Bathing,Grooming,Meal Prep, Toileting,Managing Medications ,Home Chores / Shopping Caregiver for Another No Comment Unknow at this time Comment Home with hospice vs home health or Private pay SNF placement for respice /hospice care Barriers to Discharge Yes Comment Not able to speak with spouce about DC plan at this time was not able to reach him via phone and he was not in patients room when CHILD ADVOCATE tried to interview Discharge Plan [facility] Transportation Arrangement unknow at this time, more then likely BLS vs spouce POV Additional Comment Hospice referral vs HH pending depending on consult with Whiteboard Updated in Patient Room with Yes name and ext. # of Grease Worker Review Status In Process Next Review Type Continued Stay Review
[2022-11-07 20:01] LABS: COVID19 -Nasal RAPID Negative (Negative)
[2022-11-07] MEDS: DOCUSATE 100 MG CAPSULE PO (21:43)
--- NOTE | 2022-11-07 23:12 | PC.NURSE ---
Patient is alert but oriented only to self and birthdate. Is cooperative and making jokes during assessment. When asked about not eating recently she stated that spouse is making meals and food has been less than desirable. Breath sounds CTA with RA sat of 98%. HRR. Denies nausea. BT present and abdomen is soft. Indwelling catheter is patent. Is able to turn herself in bed. Gait not assessed. Denies pain. Order for comfort care so SCD's and continuous oximetry d'cd. Fall risk score is high and bed alarm is activated.
--- NOTE | 2022-11-08 08:56 | PT-IP ANOTE ---
Per case management pt is on comfort measures, hold therapy today.
--- NOTE | 2022-11-08 08:59 | OT.IPNOTE ---
Pt on comfort measures per doctor's note, hold OT eval ,case management aware at this time.
--- NOTE | 2022-11-08 09:01 | CM.DPC ---
DCP continued: Reviewed chart. Order obtained for patient to d/c to SNF today. CURRICULUM DEVELOPMENT MANAGER requested [facility] facility with [facility]. Per notes they are awaiting authorization. P: [facility] today if authorization can be obtained. GUILLE
[2022-11-08 10:00] VITALS: BP 110/67; PULSE 59; RESP 17; TEMP 36.6; O2SAT 99
--- NOTE | 2022-11-08 10:17 | DIET.CONS2 ---
Dietary Inpatient Consultation Note Admission Date: 11/07/2022 05:[address] for failure to thrive. Pt moved to comfort care. Nutrition interventions not indicated at this time. Diet: 11/08/22 Lunch Clear Liquid Diet Diet Modifications: comfort care, clears as desired Nutrition Percent Meal Consumed 0% 11/07/22 11:55 Electronically Signed by: Annamarie Castillo 11/08/22 10:17 Clinical Dietitian [address] [address]
--- NOTE | 2022-11-08 13:25 | PM.PN.1 ---
Subjective Subjective Date Patient Seen: 11/08/22 Time Patient Seen: 13:26 Interval history: Reviewed workup in the ER as well as history and physical and met with patient and her and social work. Patient is awake and at her baseline which is not alert and oriented. She is alert. She is able to follow commands, simple. She has a Calvin catheter in place She is currently tolerating clear liquids. She is refusing any medications as well as therapy Review of systems is negative for any bloody stools. No fever or chills Exam Vital Signs (past 8 hours): - 11/08/22 10:00 Temperature 97.9 F Pulse Rate 59 L Respiratory Rate 17 Blood Pressure 110/67 Pulse Oximetry 99 Oxygen Flow Rate 0 Oxygen Delivery Method Room Air Oxygen Flow Rate 0 Narrative Exam Narrative: Afebrile vital signs are stable Patient has severe dementia. She is lying in the hospital bed. She is awake and alert but is not oriented to person place or thing. She is in no apparent distress HEENT is unremarkable Neck is supple Chest: Decreased breath sounds in the bases but no wheezes rhonchi or crackles Cor: Regular rate and rhythm with distant S1-S2 Abdomen: Positive bowel sounds, soft Extremities: No edema, pulses intact, no evidence of skin breakdown. Moves all extremities well Neurologic exam is nonfocal other than cognition Objective Labs 11/07/22 03:47 11/07/22 03:47 Labs: Laboratory Results - last 24 hr 11/07/22 19:25 SARS-CoV-2 (PCR) Negative [facility] Medical History Patient denies medical problems Surgical History History of tonsillectomy Social History marital status: household members: spouse lives independently: Yes Smoking Status: Never smoker alcohol intake: never substance use type: does not use Assessment & Plan Assessment & Plan narrative: 77-year-old female with severe dementia, end-stage. Patient received 1 dose of Rocephin and some IV fluids but urine culture was negative and due to patient's wishes and her , DPOA no further heroics or treatment. Patient is declining all oral medications and declining PT. Discussion with sr. social media & mobile manager and patient's the plan is that she will go home tomorrow with hospice. Diet will be general as tolerated Will likely go home with Calvin catheter Comfort care 40 minutes spent with patient and discussing with social work and patient's and reviewing chart and formulating a plan. Time Spent With Patient Critical Care time: I spent a total of [] minutes of critical care time on this patient's care today; this time is exclusive of procedural time. Quality VTE Deep Vein Thrombosis/Pulmonary Embolism Present on Admission: No
--- NOTE | 2022-11-08 16:03 | CM.DPC ---
DCP/continued: Reviewed chart. Met with spouse/Eliu and patient this AM. Patient is not alert and oriented. Spouse reports that he is unclear if he wants to take her home with HH vs. Hospice. ON AIR DIRECTOR provided options for both and encouraged spouse to discuss with provider. Dr. Beltran arrived this afternoon. She notified spouse that patient does qualify for hospice and that would be her recommendation. After consideration spouse in agreement. Placed call to [facility] spoke with Say she reports that they can see patient in the residence on 11-10. Dr. Beltran in agreement that patient can discharge home tomorrow - with hospice opening next day. Spouse reports that he will go home to talk to hospice because he can hear better. Say reports that she will call him around 4:30pm. Patient will require non-urgent BLS transport do to her confusion and her unpredictable behavior. Spouse made aware that if insurance does not cover ambulance then the bill will be coming to him. Spouse in agreement. BLS form needs signature from provider. Patient has POLST and it has been copied for ambulance crew. P: Home tomorrow via BLS with hospice opening on 11-10-22. ON AIR DIRECTOR/Anna made aware of above and met spouse briefly. GUILLE
[2022-11-08] MEDS: DOCUSATE 100 MG CAPSULE PO (20:43)
--- NOTE | 2022-11-08 23:21 | PC.NURSE ---
Patient is oriented only to self, birthdate and knows she is in the hospital. Breath sounds CTA. HRR. Denies nausea. BT present and abdomen is soft. Indwelling catheter is patent; urine is cloudy, light yellow. Is able to turn herself in bed. Gait not assessed. Denies pain. Remains on comfort care. Fall risk score is high and bed alarm is activated.
--- NOTE | 2022-11-09 08:23 | PM.DS.1 ---
History of Present Illness History of Present Illness Date Patient Seen: 11/09/22 Time Patient Seen: 08:23 Chief complaint: wont eat/drink alzheimers Discharge Providers Provider Date of admission: 11/07/22 05:33 Discharge Date: 11/09/22 Primary care physician: Daphne Beltran MD Consults: 11/07/22 11:26 Consult to Dietitian, Adult Routine Comment: Reason For Exam: failure to thrive 11/07/22 12:27 Consult to Discharge Planning Routine Comment: Consult to Hospice Referral Urgent Comment: Discharge provider: Daphne Beltran MD Summary Hospital Course Discharge Diagnosis: Severe dementia dehydration, improved urine culture negative Hospital Course: Patient received one dose of iv rocephin in er, ivf. Urine culture negative subsequently. Discussion with and reviewing POLST form and turned to comfort care. Patient had improvement in her condition and was progressing to baseline at discharge. Patient will be discharged to home with hospice. Extensive discussion with , DPOA Status at Discharge Cognitive/behavioral status at discharge: at baseline, confused Functional status at discharge: wheelchair bound Overall status at discharge: patient is not back to baseline Exam Vital Signs (past 8 hours): Oxygen Delivery Method Room Air Oxygen Flow Rate 0 Narrative Exam Narrative: AF, VSS alert to person but not place or time. complaining that hasnt seen for days but calmly eating with afternoon nanny chest: cta cor: rrr without murmur ext: well perfused without edema Objective Labs 11/07/22 03:47 11/07/22 03:47 PFSH Medical History Patient denies medical problems Surgical History History of tonsillectomy Social History marital status: household members: spouse lives independently: Yes Smoking Status: Never smoker alcohol intake: never substance use type: does not use Discharge Assessment & Plan Assessment and Plan Assessment: Severe dementia Dehydration, improved Plan of Treatment: Home with hospice. No current meds at this time 35 minutes spent in discharge Discharge Plan Discharge Plan Patient Disposition: Hospice - Home Discharge orders & Medications Prescriptions: Discontinued quetiapine 25 mg tablet 12.5 mg PO BEDTIME Patient Comments: TAKE 1/2 TABLET BY MOUTH AT BEDTIME lisinopril 10 mg tablet 10 mg PO DAILY Qty: 30 3RF ferrous sulfate [iron] 325 mg (65 mg iron) Tablet 325 mg PO DAILY ascorbic acid (vitamin C) [Vitamin C] 500 mg Tablet 500 mg PO DAILY Follow up/Referrals: Daphne Beltran MD [Primary Care Provider] - Diet/Activity/Treatments Diet: Diet as Tolerated Catheter: 2-way Calvin Visit Report/Discharge Packet Stand Alone Forms: Patient Portal/API, Stroke Signs & Symptoms Discharge Data Primary Care Provider: Daphne Beltran Quality VTE Deep Vein Thrombosis/Pulmonary Embolism Present on Admission: No
--- NOTE | 2022-11-09 08:34 | CM.DPNOTE ---
Anna asked me to call [facility] and spoke to Jaclyn who said they could peanut picker patient at 1350. LIDIA is in scans. Criss Mantilla CM Assist.
[2022-11-09] MEDS: MORPHINE 2 MG/ML INJ IV ×3 (09:03→14:03)
[2022-11-09] MEDS: HYDROCODONE/ACET 5/325 TABLET 2 TAB PO ×2 (09:49→14:03)
--- NOTE | 2022-11-09 10:40 | CM.DPC ---
DCP Discharge Home with Hospice Per MD, pt remains medically stable to d/c home with comfort measures today and signed the BLS form as pt not safe for transport by POV or w/c van. RAMOS called [facility] and confirmed they completed Info Visit with spouse last night and DME to be delivered between [id number]. VAHID Kahn called [facility] and scheduled BLS transport to home at 1400. RAMOS called spouse and updated on above and he remains appreciative and agreeable with d/c plan as was discussed with him bedside yesterday and will remain home awaiting DME delivery and requested nursing staff provide bed bath/shower to pt prior to d/c. RAMOS updated nursing staff who are agreeable. RAMOS updated logistics administrator and COMPLAINT INVESTIGATIONS OFFICER. VAHID Kahn faxed d/c summary and meds to [facility] to review and they will open pt to services tomorrow 11/10/22. Plan: Patient to d/c home via [facility] at 1400 with [facility] to follow and open pt to service tomorrow. Anna Soto MSW
[2022-11-09] MEDS: SCOPOLAMINE 1 PATCH TOP (12:06)
[2022-11-09] MEDS: LORazepam 2 MG/ML INJ 1 MG IV ×2 (12:20→14:04)
--- NOTE | 2022-11-09 14:32 | PC.NURSE ---
Pt received bed bath and new hospital robe as per spouse's request. Pt tolerated well. Administered Ativan and morphine to pt when BLS arrived. Tried calling Dr Beltran about getting meds ordered, and left a message. D/c paperwork and teaching packets were given to spouse. Pt left unit with all belongings @ [phone].
== END 2022-11-09 14:25 | disposition home or self-care (01) ==
LOC: ED 05:31 → AC 11:16
PROVIDERS: Admitting Provider Family Medicine; Emergency Provider Emergency Medicine; PCP Family Medicine; Referring Provider Emergency Medicine; Visit Provider Family Medicine
DX: E86.0 Dehydration (principal); G30.9 Alzheimer's disease, unspecified; F02.C0 Dementia in other diseases classified elsewhere, severe, without behavioral disturbance, psychotic disturbance, mood disturbance, and anxiety; I10 Essential (primary) hypertension; Z20.822 Contact with and (suspected) exposure to COVID-19
CPT/HCPCS: 71045; 74176; 80053; 80305; 81001; 82009; 82550; 82570; 82805; 83690; 84145; 84300; 84484; 85007; 85025; 87086; 87635; 93005; 93010; 96365; 96375; 96376; 97162; 99285; C9803; G0378; J0696; J1630; J1940; J2060; J2270

== ENCOUNTER 2022-11-10 04:04 | Emergency (ER) | payer OTHER, SELFPAY ==
[2022-11-07 05:37] VITALS: BMI 26.2
[2022-11-10] VITALS (13 sets, daily range): BP systolic 50–97; BP diastolic 25–53; PULSE 72–104; RESP 22; TEMP 37.7; O2SAT 93–100; BMI 26.5
--- NOTE | 2022-11-10 04:18 | ED_ITS ---
HPI - Recheck/Abnormal Lab/Rx General Chief Complaint: Recheck/Abnormal Lab/Rx Stated Complaint: fell out of bed Time Seen by Provider: 11/10/22 04:18 Source: EMS Mode of arrival: EMS History of Present Illness HPI narrative: Patient is 77-year-old female history dementia, cared for by her , presenting today after hospital stay for UTI, [place] and electrolyte abnormality. Patient is diagnosed with severe dementia end-stage. She was admitted for 2 days given fluids IV antibiotics. Patient was made comfort care and no further heroics or treatment. Patient was declining all oral medications and physical therapy at that time. Discharge plan was for her to go home with hospice. They have a plan to meet with hospice today at 10:00 a.m. reports that he just got scared and nervous when she rolled out of bed. He reports that she was given pain prescriptions but he is not sure what and he did not give her any she slept most of the day today. Related Data Allergies Allergy/AdvReac Type Severity Reaction Status Date / Time No Known Drug Allergies Allergy Verified 04/15/21 14:55 Review of Systems Review of Systems ROS Unobtainable: All systems reviewed & are unremarkable except as noted in HPI and below Patient History Medical History Patient denies medical problems Surgical History History of tonsillectomy Social History marital status: household members: spouse lives independently: Yes Smoking Status: Never smoker alcohol intake: never substance use type: does not use Smoking Status: Never smoker alcohol intake frequency: holidays/special occasions only Substance Use Type: does not use Exam Initial Vital Signs Initial Vital Signs: Vital Signs Temperature 99.8 F H 11/10/22 04:07 Pulse Rate 99 H 11/10/22 04:07 Respiratory Rate 22 11/10/22 04:07 Blood Pressure 97/51 L 11/10/22 04:07 Pulse Oximetry 100 11/10/22 04:07 Oxygen Delivery Method Room Air 11/10/22 04:07 GENERAL: Alert 77-year-old female HEENT: Head atraumatic,EOMI, pupils reactive, face symmetric, moist mucous membranes CARDIOVASCULAR: Regular rate and rhythm without murmurs, rubs or gallops. RESPIRATORY: Breath sounds equal bilaterally, no wheezes rales or rhonchi. ABDOMEN: Soft, nontender. Normoactive bowel sounds all 4 quadrants. No guarding or rebound. EXTREMITIES: Normal range of motion, no clubbing or edema. Neurovascularly intact Tender pelvis left hip right less tender, distal pedal pulse intact limited range of motion NEUROLOGICAL: Alert answer some questions SKIN: Warm, dry, no laceration, no petechiae, no rashes or lesions. Course Orders Ordered: Discontinued Medications Hydrocodone Bitart/Acetaminophen (Hydrocodone/Acet 5/325 Tablet) 1 tab PO NOW ONE Stop: 11/10/22 04:47 Last Admin: 11/10/22 04:59 Dose: 1 tab Documented By: ANDREAS Vital Signs Vital signs: Vital Signs - 8 hr 11/10/22 04:07 Temperature 99.8 F H Pulse Rate 99 H Respiratory Rate 22 Blood Pressure 97/51 L Pulse Oximetry 100 Oxygen Delivery Method Room Air MDM - Recheck/Abnormal Lab/Rx Imaging Data Extremity x-ray #1: Radiologist's Impression: Degenerative changes of bilateral femoroacetabular joints without acute traumatic injury MDM Narrative Medical decision making narrative: Patient 77 years old with history of end-stage Alzheimer's dementia recent UTI appointment today with hospice. admits that he got scared when she fell out of bed and monitor examined. Does not want any further treatment blood work or other workup which I agree with. He would very much like to make the appointment today with hospice. Patient is noted to still be mildly hypotensive however she is awake and alert. She does have a Calvin catheter place. Presents today she fell out of bed was I am able to pick her up she is quite tender initially in her left hip x-ray showed abnormality on the right but no fracture. Reexamination patient still mildly tender but able to move extremities without any difficulty. She was given [place] here in the ED. Discharge Plan Departure Patient Disposition: Home Clinical Impression: Fall Instructions: How to Prevent Falls Activity Restrictions/Additional Instructions: Please meet with hospice today. Take pain medications as previously prescribed Return to ED if pain is out of control or other other worsening symptoms Referrals: Daphne Beltran MD [Primary Care Provider] - Stand Alone Forms: Patient Portal/API
--- NOTE | 2022-11-10 04:28 | DI.RAD.S_ITS ---
PROCEDURE: XR PELVIS 1-2V INDICATIONS: fall pain TECHNIQUE: 1 view(s) of the pelvis acquired. COMPARISON: None. FINDINGS: Bones: No fractures or dislocations. No suspicious bony lesions. Bilateral hip degenerative change. Soft tissues: Visualized bowel gas pattern is normal. No suspicious soft tissue calcifications. IMPRESSION: No evidence acute bony abnormality of the pelvis. Comment: Final report is concordant with preliminary interpretation provided by [facility]. If clinical suspicion and/or symptoms persist, further assessment with repeat plain films, or advanced imaging (e.g., CT, MRI, or bone scan) may be helpful for further assessment. Dictated by: Masoud Scott M.D. on 11/10/2022 at 8:09 Approved by: Masoud Scott M.D. on 11/10/2022 at 8:10
[2022-11-10] MEDS: HYDROCODONE/ACET 5/325 TABLET 1 TAB PO (04:59)
== END 2022-11-10 09:00 | disposition home or self-care (01) ==
PROVIDERS: Emergency Provider Emergency Medicine; PCP Family Medicine
DX: R10.2 Pelvic and perineal pain (principal); W06.XXXA Fall from bed, initial encounter
CPT/HCPCS: 72170; 99283; 99284